=== PATIENT | male | born 1970 | race Two or more races ===

== ENCOUNTER 2025-06-30 17:59 | Inpatient (IN) ==
[2025-06-30] MEDS: OPTIRAY 320 100ml IV ONE (18:13)
--- NOTE | 2025-06-30 18:21 | Emergency Department Note ---
History of Present Illness General Chief complaint: Trauma Stated complaint: UNRESPONSIVE, SYNCOPE Time Seen by Provider: 06/30/25 18:03 Source: EMS Limitations: language barrier History of Present Illness Provider complaint: Syncope 54-year-old male from [facility] presents to the emergency department status post syncopal episode. Per EMS and guards at bedside the patient was having a visitation with a family member when he found out a family member . Patient became very distraught and then had a syncopal episode and fell down and hit his head. Patient is not giving any history just crying. Home Medications Medication Instructions Recorded Confirmed Type No Known Home Medications 06/30/25 06/30/25 History Allergies Allergy/AdvReac Type Severity Reaction Status Date / Time No Known Allergies Allergy Unverified 06/30/25 18:11 Past Med/Surg History Problem List (Updated 06/30/25 @ 19:25 by Brian Crawley MD) CHI (closed head injury) (Acute) Syncope (Acute) Rhabdomyolysis (Acute) Social History Smoking Status: Former smoker Preferred Language: Kuwaiti Feels Safe at Home: Yes Physical Exam Vital Signs Vital Signs - 24 hr 06/30/25 17:47 06/30/25 17:49 06/30/25 17:49 Temperature 36.4 C L 36.7 C 36.4 C L Temperature Source Oral Oral Pulse Rate 79 74 Pulse Rate [Right Finger] 73 Respiratory Rate 22 24 24 Respiratory Effort / Characteristics Non-Labored Spontaneous Non-Labored Spontaneous Respiratory Depth Normal Normal Blood Pressure 129/64 132/75 Blood Pressure [Right Arm] 132/75 Blood Pressure Mean 85 Blood Pressure Mean [Right Arm] 94 Pulse Oximetry 96 100 98 Oxygen Delivery Method Room Air Room Air Room Air Oxygen Flow Rate 0 Sepsis Recent Fever Within 48 Hours No Sepsis New/Unexplained Change in Mental Status No Sepsis Action Taken by Nursing No Action Required 06/30/25 18:33 06/30/25 18:41 06/30/25 18:49 Temperature Temperature Source Pulse Rate 75 Pulse Rate [Right Finger] 79 78 Respiratory Rate 21 23 Respiratory Effort / Characteristics Non-Labored Spontaneous Non-Labored Spontaneous Respiratory Depth Normal Normal Blood Pressure Blood Pressure [Right Arm] 127/70 128/69 Blood Pressure Mean Blood Pressure Mean [Right Arm] 89 88 Pulse Oximetry 100 97 Oxygen Delivery Method Room Air Room Air Oxygen Flow Rate Sepsis Recent Fever Within 48 Hours Sepsis New/Unexplained Change in Mental Status Sepsis Action Taken by Nursing 06/30/25 19:45 Temperature Temperature Source Pulse Rate Pulse Rate [Right Finger] 73 Respiratory Rate 20 Respiratory Effort / Characteristics Respiratory Depth Blood Pressure Blood Pressure [Right Arm] 136/73 Blood Pressure Mean Blood Pressure Mean [Right Arm] 94 Pulse Oximetry 99 Oxygen Delivery Method Room Air Oxygen Flow Rate Sepsis Recent Fever Within 48 Hours Sepsis New/Unexplained Change in Mental Status Sepsis Action Taken by Nursing Primary Survey Airway: Intact Breathing: Normal, breath sounds equal bilaterally Circulation: Skin warm, distal pulses 2+, capillary refill less than 2 seconds Disability Pupils: Equal and reactive to light, 2 mm, brisk GCS: 15, E = 4 V=2 M= 5 Motor Function: Moves all extremities. Sensory: No deficits Secondary Survey GEN: Well developed and well-nourished. Patient in shackles with [facility] guards at bedside. HEAD: Normocephallic atruamatic EYES: Pupils round reactive to light, conjunctiva clear, extraocular movements intact, no raccoons eyes ENT: no ngo's sign, nares patent, oropharynx clear NECK: No JVD, midline trachea, no cervical spine tenderness HEART: Regular rate and rhythm LUNGS: Clear to auscultation bilaterally. CHEST: Chest wall non-tender, no bruising/deformity ABD: soft, non-tender, no rebound or guarding, MUSC: Pelvis stable. No step offs or deformities, T-L spine non tender NEURO: Motor and sensation grossly intact. Course Course 1802: The patient was evaluated in room A1. A complete history and physical exam was performed Cardiac monitoring: An order was placed for continuous cardiac monitoring. The monitor shows a rate of 70 with sinus rhythm interpreted by me 1904: Imaging shows no acute traumatic injury. Patient C-spine cleared. 1922: Vital signs stable. Patient alert and oriented at this time. Speaking in [place]i now. Labs are significant for a total creatinine kinase of 3465. Patient will be aggressively hydrated and admitted to the hospitalist service for rhabdomyolysis as well as his syncope. Administered Medications Discontinued Medications Sodium Chloride (Nss) 1,000 mls @ 999 mls/hr IV .Q1H1M ONE Stop: 06/30/25 19:04 Last Infusion: 06/30/25 19:58 Dose: Infused Documented By: Admin: 06/30/25 18:52 Dose: 999 mls/hr Documented By: POLLY Sodium Chloride (Nss) 1,000 mls @ 999 mls/hr IV .Q1H1M ONE Stop: 06/30/25 20:15 Last Admin: 06/30/25 19:36 Dose: 999 mls/hr Documented By: JANE Ioversol (Optiray 320 100ml) 90 ml IV ONCE ONE Stop: 06/30/25 18:13 Last Admin: 06/30/25 18:13 Dose: 90 ml Documented By: CARLENE Miscellaneous (Rapid Sequence Induction Bag) Confirm Administered Dose 1 each N/A .STK-MED ONE Stop: 06/30/25 17:52 Last Admin: 06/30/25 18:51 Dose: Not Given Documented By: POLLY Critical Care Time Critical Care Time: Yes Total Critical Care Time: 52 I have personally spent greater than 52 minutes of critical care time in the direct management of this patient. This includes bedside care, interpretation of diagnostic studies, and testing, discussion with consultants, patient, and family members, and other required patient management activities. This 52 minutes is in excess of all separately billable procedures. Medical Decision Making Laboratory Data Attestation: I reviewed the patient's lab results. 06/30/25 18:06 06/30/25 18:06 Lab Results 06/30/25 06/30/25 06/30/25 Range/Units 18:06 18:10 18:24 WBC 6.88 (4.8-10.8) K/ul RBC 3.22 L (4.70-6.10) M/uL Hgb 11.4 L (14.0-18.0) g/dl POC Hgb 11.9 L (14.0-18.0) g/dl Hct 32.8 L (42.0-52.0) % POC Hct 35 L (42-52) % MCV 101.9 H (80.0-100.0) fL MCH 35.4 H (25.0-34.0) pg MCHC 34.8 (32.0-36.0) g/dL RDW Std Deviation 58.8 H (36.4-46.3) fL RDW Coeff of Steffanie 15.9 H (11.5-14.5) % Plt Count 149 (130-400) K/uL MPV 11.4 (9.4-12.4) fL Immature Gran % (Auto) 0.3 % Neut % (Auto) 57.3 % Lymph % (Auto) 28.5 % Duchesne % (Auto) 11.5 % Eos % (Auto) 1.5 % Baso % (Auto) 0.9 % Neut # (Auto) 3.95 (1.40-6.50) K/uL Lymph # (Auto) 1.96 (1.20-3.40) K/uL Duchesne # (Auto) 0.79 H (0.11-0.59) K/uL Eos # (Auto) 0.10 (0.00-0.50) K/uL Baso # (Auto) 0.06 (0.00-0.20) K/uL Immature Gran # (Auto) 0.02 (0.01-0.20) K/uL PT 10.4 (9.0-12.0) Seconds INR 1.0 (0.9-1.1) APTT 27 (21-31) Seconds PTT Ratio 1.0 POC Sodium 141 (135-144) mmol/L Sodium 141 (136-145) mmol/L POC Potassium 4.2 (3.3-5.0) mmol/L Potassium 4.2 (3.5-5.1) mmol/L POC Chloride 103 (101-112) mmol/L Chloride 104 (98-107) mmol/L Carbon Dioxide 31 (21-32) mmol/L POC Total CO2 28 (24-31) mmol/L Anion Gap 6 (3-11) POC Anion Gap 15.0 L (16-25) mmol/L POC BUN 8 (7-18) mg/dl BUN 9 (6-23) mg/dl Creatinine 0.78 (0.6-1.4) mg/dl POC Creatinine 0.9 (0.6-1.3) mg/dl Est Cr Clr Drug Dosing 118.1 ml/min eGFR 107.30 BUN/Creatinine Ratio 11.5 (10-20) Glucose 103 H (70-99(Fasting)) mg/dl POC Glucose (other) 103 H (70-99) mg/dl Calcium 8.9 (8.6-10.3) mg/dl POC Ioniz Calcium Deann 1.07 L (1.12-1.32) mmol/l Total Bilirubin 0.5 (0.2-1.0) mg/dl AST 101 H (13-39) U/L ALT 54 H (7-52) U/L Alkaline Phosphatase 181 H (34-104) U/L Total Creatine Kinase 3465 H (30-223) U/L Troponin I High Sens 12.0 (0-20) pg/ml Total Protein 7.1 (6.0-8.3) gm/dl Albumin 3.4 (3.4-5.0) gm/dl Globulin 3.7 (2.5-4.0) gm/dl Albumin/Globulin Ratio 0.9 (0.9-2) Lipase 54 (11-82) U/L Urine Color Yellow Urine Appearance Clear (Clear) Urine pH 7.5 (4.5-7.5) Ur Specific [place] 1.007 (1.000-1.030) Urine Protein Negative (Negative) Urine Glucose (UA) Negative (Negative) Urine Ketones Negative (Negative) Urine Blood Negative (Negative) Urine Nitrite Negative (Negative) Urine Bilirubin Negative (Negative) Urine Urobilinogen Negative (Negative) Ur Leukocyte Esterase Trace H (Negative) Urine WBC (Auto) 0-5 (0-5) /hpf Urine RBC (Auto) 0-2 (0-2) /hpf U Hyaline Cast (Auto) 0-2 (0-2) /lpf U Epithel Cells (Auto) 0-2 (0-2) /hpf Urine Bacteria (Auto) None Seen (None Seen) Urine Comment Urine Opiates Screen Neg (Neg) Ur Methadone, Qual Neg (Neg) Urine Fentanyl Screen Neg (Neg) Urine Barbiturates Neg (Neg) Ur Phencyclidine (PCP) Neg (Neg) U Amphetamin/Meth Scrn Neg (Neg) MDMA (Ecstasy) Screen Neg (Neg) U Benzodiazepines Scrn Neg (Neg) Ur Cocaine Metabolite Neg (Neg) U Marijuana (THC) Screen Neg (Neg) Imaging Data Attestation: I personally reviewed and interpreted this imaging study as follows: My Impression: Chest x-ray: Chest x-ray negative. Airway clear. No pneumothorax. No consolidation. No cardiomegaly or cephalization.. No free air under the diaphragm. No fractures of the skeletal structures. Pelvis x-ray: No acute fracture or dislocation Radiologist's Impression: Abdomen/Pelvis CT 06/30/25 18:03 Clinical History: Syncopal episode. Fall Technique: Axial computed tomography images were obtained of the abdomen and pelvis after the administration of intravenous contrast. No prior CT is available for comparison. Findings: The liver is enlarged. There is no sign of cirrhosis or significant fatty infiltration. There are suspected small cysts in the right hepatic lobe. No liver mass lesion is seen. The portal vein is patent. The gallbladder appears unremarkable. No bile duct dilatation is noted. The spleen is of normal size. No focal splenic lesion is evident. The pancreas appears normal with no sign of acute or chronic pancreatitis and no mass lesion noted. The pancreatic duct is of normal caliber. The adrenal glands appear unremarkable. There are small bilateral renal calculi, measuring 2-3 mm. There is no hydronephrosis or perinephric stranding. No renal mass lesion is identified. The aorta is of normal caliber. No abdominal adenopathy is seen. The stomach appears normal. There is no sign of small bowel obstruction. There is diverticulosis without evidence of diverticulosis. No free intraperitoneal fluid or air is identified. No distal ureteral or bladder calculi are seen. There is mild prominence of the bladder wall that could be due to incomplete distention. The iliac arteries are of normal caliber. No pelvic adenopathy is noted. There is a small calcified granuloma in the right lower lobe. There is a 4 mm noncalcified left lower lobe nodule Mild thoracolumbar degenerative disc disease is seen. No fracture is identified. No focal osseous lesion is seen Impression: 1. No definite sign of abdominal organ injury after trauma 2. Small hepatic cysts 3. Small nonobstructing renal calculi 4. Diverticulosis without evidence of diverticulitis 5. Mild prominence of the wall of the urinary bladder. This appearance could be due to incomplete distention, though infectious cystitis or other pathology cannot be excluded. Correlation with urinalysis may be useful 6. Small left lung base nodule, likely benign but indeterminate in nature. A follow-up chest CT could be obtained in 6 months 7. Hepatomegaly ACT 112: Positive. There are findings on this exam that require communication between the performing entity and the patient following Patient Test Result Information Act ([place] ACT 112) guidelines. Electronically signed by Venkat Perez 06-30-2025 6:53 PM Chest X-Ray 06/30/25 18:03 Clinical History: Trauma Technique: 2 frontal views of the chest were obtained Findings: There are no confluent pulmonary infiltrates. The heart size is at the upper limit of normal. No pleural effusion or pneumothorax is seen. There is no definite pulmonary nodule. No fracture is noted. No foreign body is seen Impression: No active disease Electronically signed by Venkat Perez 06-30-2025 6:44 PM Pelvis X-Ray 06/30/25 18:03 Clinical History: Trauma 1 view of the pelvis is submitted for review. Findings: No fracture or dislocation is seen. No significant arthritic changes are noted. No other osseous abnormality is identified. There are no radiopaque foreign bodies. Impression: Unremarkable pelvic radiograph Electronically signed by Venkat Perez 06-30-2025 6:[address] 06/30/25 18:04 Clinical history: Syncope. Fall Technique: Axial computed tomography images were obtained of the cervical spine without intravenous contrast. Sagittal and coronal reconstructions were obtained Findings: No fracture is identified. No listhesis is seen. No focal osseous lesion is evident. The atlantoaxial articulation appears unremarkable. At C2-3, no disc herniation is identified. There is no spinal stenosis. The neural foramen are patent At C3-4, no disc herniation is identified. There is no spinal stenosis. The neural foramen are patent At C4-5, there is a disc bulge without spinal stenosis. There is right neural foramen narrowing that may affect the right C5 nerve root At C5-6, there is spinal stenosis due to a disc bulge. There is right neural foramen narrowing that may affect the right C6 nerve root At C6-7, there is mild spinal stenosis due to a disc bulge. There is left neural foramen narrowing that may affect the right C7 nerve root At C7-T1,no disc herniation is identified. There is no spinal stenosis. The neural foramen are patent The lung apices appear clear. The visualized soft tissues of the neck appear unremarkable. No foreign body is seen Impression: 1. No definite cervical spine fracture 2. Spinal stenosis at C5-6 and C6-7 3. Right C4-5 and C5-6 and left C6-7 neural foramen narrowing, which may affect the exiting nerve roots Electronically signed by Venkat Perez 06-30-2025 6:[address] 06/30/25 18:04 Clinical History: Syncope. Fall Technique: Axial computed tomography images were obtained of the brain without intravenous contrast. Findings: There is mild cerebral atrophy, within expected limits for the patient's age. Areas of decreased attenuation are seen within the periventricular white matter, likely representing chronic small vessel ischemic disease. There is no definite sign of acute or old infarction. No intracranial hemorrhage is evident. No definite mass lesion is seen on this noncontrast examination. There is no midline shift or other form of herniation. No hydrocephalus is seen. No fracture is identified. The orbits and the visualized paranasal sinuses appear unremarkable. The mastoid air cells appear clear. Impression: 1. Cerebral atrophy and chronic small vessel ischemic disease 2. Otherwise unremarkable noncontrast CT of the brain Electronically signed by Venkat Perez 06-30-2025 6:43 PM ECG Data Attestation: I personally reviewed and interpreted this ECG as follows: Rate (beats per minute): 74 Rhythm: + normal sinus ECG Intervals/blocks: + Normal QRS, + Normal SD and + Normal QT-c ECG ST segments: + Normal ST segments [facility] Narrative 1803: The patient was evaluated in room A1. A complete history and physical exam was performed Cardiac monitoring: An order was placed for continuous cardiac monitoring. The monitor shows a rate of 70 with sinus rhythm interpreted by me 1904: Imaging shows no acute traumatic injury. Patient C-spine cleared. 1923: Vital signs stable. Patient alert and oriented at this time. Speaking in [place]i now. Labs are significant for a total creatinine kinase of 3465. Patient will be aggressively hydrated and admitted to the hospitalist service for rhabdomyolysis as well as his syncope. Impression & Plan Rhabdomyolysis, Syncope, CHI (closed head injury) Discharge Plan Visit Data Chief Complaint: Trauma Stated Complaint: UNRESPONSIVE, SYNCOPE ED Provider: Brian Crawley Discharge Problem: Rhabdomyolysis, Syncope, CHI (closed head injury) Patient Disposition: Admitted As Inpatient Condition: Serious Forms Stand Alone Forms: [employer] Prescriptions Prescriptions: No Action No Known Home Medications Referrals Referrals: PCP,NO [Physician] -
[2025-06-30 18:28] LABS: Hematocrit (blood only) 32.8 % (42.0-52.0); Hemoglobin 11.4 g/dl (14.0-18.0); Immature Granulocytes # (auto) 0.02 K/uL (0.01-0.20); Immature Granulocytes % (auto) 0.3 %; Mean Corpuscular Hemoglobin 35.4 pg (25.0-34.0); Mean Corpuscular Volume 101.9 fL (80.0-100.0); Platelet Count 149 K/uL (130-400); RDW Standard Deviation 58.8 fL (36.4-46.3); Red Blood Count 3.22 M/uL (4.70-6.10); White Blood Count 6.88 K/ul (4.8-10.8)
--- NOTE | 2025-06-30 18:43 | CT Scan Report ---
Clinical History: Syncope. Fall Technique: Axial computed tomography images were obtained of the brain without intravenous contrast. Findings: There is mild cerebral atrophy, within expected limits for the patient's age. Areas of decreased attenuation are seen within the periventricular white matter, likely representing chronic small vessel ischemic disease. There is no definite sign of acute or old infarction. No intracranial hemorrhage is evident. No definite mass lesion is seen on this noncontrast examination. There is no midline shift or other form of herniation. No hydrocephalus is seen. No fracture is identified. The orbits and the visualized paranasal sinuses appear unremarkable. The mastoid air cells appear clear. Impression: 1. Cerebral atrophy and chronic small vessel ischemic disease 2. Otherwise unremarkable noncontrast CT of the brain Electronically signed by Venkat Perez 06-30-2025 6:43 PM
[2025-06-30 18:45] LABS: Appearance Urine Clear (Clear); Bacteria Urine Automated None Seen (None Seen); Cast Urine Automated 0-2 /lpf (0-2); Epithelial Cell Urine Auto 0-2 /hpf (0-2); Glucose Urine UA Negative (Negative); RBC Urine Automated 0-2 /hpf (0-2); WBC Urine Automated 0-5 /hpf (0-5)
--- NOTE | 2025-06-30 18:45 | XRay Report ---
Clinical History: Trauma Technique: 2 frontal views of the chest were obtained Findings: There are no confluent pulmonary infiltrates. The heart size is at the upper limit of normal. No pleural effusion or pneumothorax is seen. There is no definite pulmonary nodule. No fracture is noted. No foreign body is seen Impression: No active disease Electronically signed by Venkat Perez 06-30-2025 6:44 PM
--- NOTE | 2025-06-30 18:45 | XRay Report ---
Clinical History: Trauma 1 view of the pelvis is submitted for review. Findings: No fracture or dislocation is seen. No significant arthritic changes are noted. No other osseous abnormality is identified. There are no radiopaque foreign bodies. Impression: Unremarkable pelvic radiograph Electronically signed by Venkat Perez 06-30-2025 6:44 PM
[2025-06-30 18:46] LABS: Anion Gap 6.0 (3-11); Blood Urea Nitrogen 9.0 mg/dl (6-23); Calcium 8.9 mg/dl (8.6-10.3); Carbon Dioxide 31.0 mmol/L (21-32); Chloride 104.0 mmol/L (98-107); Creatinine Clr Calc Pharmacy 118.1 ml/min; Glucose 103.0 mg/dl (70-99(Fasting)); Potassium 4.2 mmol/L (3.5-5.1); Sodium 141.0 mmol/L (136-145)
--- NOTE | 2025-06-30 18:49 | CT Scan Report ---
Clinical history: Syncope. Fall Technique: Axial computed tomography images were obtained of the cervical spine without intravenous contrast. Sagittal and coronal reconstructions were obtained Findings: No fracture is identified. No listhesis is seen. No focal osseous lesion is evident. The atlantoaxial articulation appears unremarkable. At C2-3, no disc herniation is identified. There is no spinal stenosis. The neural foramen are patent At C3-4, no disc herniation is identified. There is no spinal stenosis. The neural foramen are patent At C4-5, there is a disc bulge without spinal stenosis. There is right neural foramen narrowing that may affect the right C5 nerve root At C5-6, there is spinal stenosis due to a disc bulge. There is right neural foramen narrowing that may affect the right C6 nerve root At C6-7, there is mild spinal stenosis due to a disc bulge. There is left neural foramen narrowing that may affect the right C7 nerve root At C7-T1,no disc herniation is identified. There is no spinal stenosis. The neural foramen are patent The lung apices appear clear. The visualized soft tissues of the neck appear unremarkable. No foreign body is seen Impression: 1. No definite cervical spine fracture 2. Spinal stenosis at C5-6 and C6-7 3. Right C4-5 and C5-6 and left C6-7 neural foramen narrowing, which may affect the exiting nerve roots Electronically signed by Venkat Perez 06-30-2025 6:48 PM
[2025-06-30] MEDS: RAPID SEQUENCE INDUCTION BAG ONE (18:51)
[2025-06-30] MEDS: SODIUM CHLORIDE 0.9% 1,000 ML IV ONE ×2 (18:52→19:36)
--- NOTE | 2025-06-30 18:54 | CT Scan Report ---
Clinical History: Syncopal episode. Fall Technique: Axial computed tomography images were obtained of the abdomen and pelvis after the administration of intravenous contrast. No prior CT is available for comparison. Findings: The liver is enlarged. There is no sign of cirrhosis or significant fatty infiltration. There are suspected small cysts in the right hepatic lobe. No liver mass lesion is seen. The portal vein is patent. The gallbladder appears unremarkable. No bile duct dilatation is noted. The spleen is of normal size. No focal splenic lesion is evident. The pancreas appears normal with no sign of acute or chronic pancreatitis and no mass lesion noted. The pancreatic duct is of normal caliber. The adrenal glands appear unremarkable. There are small bilateral renal calculi, measuring 2-3 mm. There is no hydronephrosis or perinephric stranding. No renal mass lesion is identified. The aorta is of normal caliber. No abdominal adenopathy is seen. The stomach appears normal. There is no sign of small bowel obstruction. There is diverticulosis without evidence of diverticulosis. No free intraperitoneal fluid or air is identified. No distal ureteral or bladder calculi are seen. There is mild prominence of the bladder wall that could be due to incomplete distention. The iliac arteries are of normal caliber. No pelvic adenopathy is noted. There is a small calcified granuloma in the right lower lobe. There is a 4 mm noncalcified left lower lobe nodule Mild thoracolumbar degenerative disc disease is seen. No fracture is identified. No focal osseous lesion is seen Impression: 1. No definite sign of abdominal organ injury after trauma 2. Small hepatic cysts 3. Small nonobstructing renal calculi 4. Diverticulosis without evidence of diverticulitis 5. Mild prominence of the wall of the urinary bladder. This appearance could be due to incomplete distention, though infectious cystitis or other pathology cannot be excluded. Correlation with urinalysis may be useful 6. Small left lung base nodule, likely benign but indeterminate in nature. A follow-up chest CT could be obtained in 6 months 7. Hepatomegaly ACT 112: Positive. There are findings on this exam that require communication between the performing entity and the patient following Patient Test Result Information Act ([place] ACT 112) guidelines. Electronically signed by Venkat Perez 06-30-2025 6:53 PM
[2025-06-30 18:55] LABS: INR 1.0 (0.9-1.1); Partial Thromboplastin Time 27 Seconds (21-31); Prothrombin Time 10.4 Seconds (9.0-12.0)
[2025-06-30 19:12] LABS: Alanine Aminotransferase 54.0 U/L (7-52); Albumin Globulin Ratio 0.9 (0.9-2); Alkaline Phosphatase 181.0 U/L (34-104); Bilirubin,Total 0.5 mg/dl (0.2-1.0); Creatine Kinase 3465.0 U/L (30-223); Globulin 3.7 gm/dl (2.5-4.0); Lipase 54.0 U/L (11-82); Total Protein 7.1 gm/dl (6.0-8.3)
[2025-06-30 19:30] LABS: Amphetamines+Metham, Urine Neg (Neg); MDMA (Ecstacy), Urine Neg (Neg); Marijuana, Urine Neg (Neg)
--- NOTE | 2025-06-30 22:36 | History & Physical Report ---
Date of Service June 30, 2025 Assessment & Plan (1) Syncope: Plan: 54-year-old male with past medical history significant for COVID in 2020 and was in coma and was 25 days in the hospital as per the patient who is currently in retirement presents with syncope. Patient had a visit from family and was notified that his mother yesterday. Since the news seems patient became very distraught and had a syncopal episode and fell down and hit his head. Patient does not know how long he passed out. After he woke up he was confused for some time. Denies any biting of the tongue. Patient does not know whether he had a bowel or bladder incontinence during the episode. Initially in the ER he was crying. Currently is feeling better. Has some headache.Some blurred visions. No sore throat or cough. Initially had chest pain but is getting better now. Earlier had shortness of breath but is getting better now. Having cough since morning and bringing sputum. Had some nausea. Has some lower abdominal discomfort. Had normal bowel movements in the morning. Micturating okay. Hemodynamics are okay. Patient has rash in his lower extremities he attributes it to complication from his severe COVID . Pointer Machine Operator gave him some cream which he has at home. 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 Couple of days ago his legs were very much swollen. Currently the swelling has come down.His PPD shot on left forearm seems positive Patient thinks he ad reaction from PPD shot and possibly caused leg swelling. Syncope and fall Questionable seizures Hit his head CT head no acute findings CT cervical spine no acute findings Chest x-ray no acute findings Pelvic x-ray no acute findings CT abdomen pelvis no acute findings. Diverticulosis. Hepatomegaly. Small left lung base nodule recommend follow-up CT chest in 6 months EKG and troponin okay. Will monitor on telemetry Serial cardiac enzymes and repeat EKG and an echocardiogram EEG Consult cardiology and neurology in a.m. Rhabdomyolysis CPK 3465 Aggressive fluids Follow repeat labs Elevated LFTs Total bilirubin 0.5. AST 101. ALT 54. Alkaline phos 181. Will follow repeat levels Will follow hepatitis panel PPD scee Positive? cxr ok ct chest shows two solid nodules 4mm and 5mm in left lower lobe , othrwise unremarkable has cough. sputum sent for cultures and acid fast smear consulted pulmonary for any further recommendation/advice Anemia Hemoglobin 11.4 MCV 101 Will check stool for Hemoccult Iron studies, vitamin B12 folate levels Will follow labs DVT prophylaxis Lovenox Disposition Telemetry Full code. History of Present Illness Chief Complaint: Syncope Primary Care Provider: Bossman Ochoa DO 54-year-old male with past medical history significant for COVID in 2020 and was in coma and was 25 days in the hospital as per the patient who is currently in retirement presents with syncope. Patient had a visit from family and was notified that his mother yesterday. Since the news seems patient became very distraught and had a syncopal episode and fell down and hit his head. Patient does not know how long he passed out. After he woke up he was confused for some time. Denies any biting of the tongue. Patient does not know whether he had a bowel or bladder incontinence during the episode. Initially in the ER he was crying. Currently is feeling better. Has some headache.Some blurred visions. No sore throat or cough. Initially had chest pain but is getting better now. Earlier had shortness of breath but is getting better now. Having cough since morning and bringing sputum. Had some nausea. Has some lower abdominal discomfort. Had normal bowel movements in the morning. Micturating okay. Hemodynamics are okay. Patient has rash in his lower extremities he attributes it to complication from his severe COVID . Pointer Machine Operator gave him some cream which he has at home. 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 Couple of days ago his legs were very much swollen. Currently the swelling has come down.His PPD shot on left forearm seems positive Patient thinks he ad reaction from PPD shot and possibly caused leg swelling. Past medical history. As mentioned above. Past surgical history. Left inguinal hernia repair. Liver biopsy. Social history. Patient states he used to smoke for here and there small amounts. Currently not drinking alcohol. Denies any drug use. Family history. Mother from heart attack. Allergies Allergy/AdvReac Type Severity Reaction Status Date / Time No Known Allergies Allergy Unverified 06/30/25 18:11 Home Medications Medication Instructions Recorded Confirmed Type No Known Home Medications 06/30/25 06/30/25 History Past Med/Surg History Problem List (Updated 06/30/25 @ 19:25 by Brian Crawley MD) CHI (closed head injury) (Acute) Syncope (Acute) Rhabdomyolysis (Acute) Social History Smoking Status: Former smoker Hx Alcohol Use: No Hx Substance Use: No Preferred Language: Luxembourgish Communication Ability: Effective Beliefs That Will Affect Care: None Feels Safe at Home: Yes Review of Systems Review of Systems: All systems reviewed & are unremarkable except as noted in HPI & below Physical Exam Physical Exam: General- Not in distress. Head- atraumatic Eyes- PERRL. ENT- oropharynx clear Neck- supple, no JVD. Lungs- clear to auscultation no wheezing or crackles Heart- regular rate and rhythm; no murmur, no gallop. Abdomen- normal bowel sounds, soft, nontender, no distension Extremities- trace pretibial edema, scaly erythematous rash seen on lower extremity. Neuro- alert, oriented PERRL, no facial palsy; no dysarthria; moves extremities Results & Data Results & Data Vital Signs (Past 12 Hours) Vital Signs Temp Pulse Pulse Resp BP BP Pulse Ox 06/30/25 22:00 71 18 139/78 99 06/30/25 21:00 77 20 131/77 98 06/30/25 20:00 72 20 147/85 H 100 06/30/25 19:45 73 20 136/73 99 06/30/25 18:49 78 23 128/69 97 06/30/25 18:41 79 21 127/70 100 06/30/25 18:33 75 06/30/25 17:49 36.4 C L 73 24 132/75 98 06/30/25 17:49 36.7 C 74 24 132/75 100 06/30/25 17:47 36.4 C L 79 22 129/64 96 O2 Del Method O2 Flow Rate 06/30/25 22:00 Room Air 06/30/25 21:00 Room Air 06/30/25 20:00 Room Air 06/30/25 19:45 Room Air 06/30/25 18:49 Room Air 06/30/25 18:41 Room Air 06/30/25 18:33 06/30/25 17:49 Room Air 06/30/25 17:49 Room Air 0 06/30/25 17:47 Room Air Diagnostic Findings Laboratory Results WBC 6.88 K/ul (4.8-10.8) 06/30/25 18:06 RBC 3.22 M/uL (4.70-6.10) L 06/30/25 18:06 Hgb 11.4 g/dl (14.0-18.0) L 06/30/25 18:06 POC Hgb 11.9 g/dl (14.0-18.0) L 06/30/25 18:10 Hct 32.8 % (42.0-52.0) L 06/30/25 18:06 POC Hct 35 % (42-52) L 06/30/25 18:10 MCV 101.9 fL (80.0-100.0) H 06/30/25 18:06 MCH 35.4 pg (25.0-34.0) H 06/30/25 18:06 MCHC 34.8 g/dL (32.0-36.0) 06/30/25 18:06 RDW Std Deviation 58.8 fL (36.4-46.3) H 06/30/25 18:06 RDW Coeff of Steffanie 15.9 % (11.5-14.5) H 06/30/25 18:06 Plt Count 149 K/uL (130-400) 06/30/25 18:06 MPV 11.4 fL (9.4-12.4) 06/30/25 18:06 Immature Gran % (Auto) 0.3 % 06/30/25 18:06 Neut % (Auto) 57.3 % 06/30/25 18:06 Lymph % (Auto) 28.5 % 06/30/25 18:06 [place] % (Auto) 11.5 % 06/30/25 18:06 Eos % (Auto) 1.5 % 06/30/25 18:06 Baso % (Auto) 0.9 % 06/30/25 18:06 Neut # (Auto) 3.95 K/uL (1.40-6.50) 06/30/25 18:06 Lymph # (Auto) 1.96 K/uL (1.20-3.40) 06/30/25 18:06 [place] # (Auto) 0.79 K/uL (0.11-0.59) H 06/30/25 18:06 Eos # (Auto) 0.10 K/uL (0.00-0.50) 06/30/25 18:06 Baso # (Auto) 0.06 K/uL (0.00-0.20) 06/30/25 18:06 Immature Gran # (Auto) 0.02 K/uL (0.01-0.20) 06/30/25 18:06 PT 10.4 Seconds (9.0-12.0) 06/30/25 18:06 INR 1.0 (0.9-1.1) 06/30/25 18:06 APTT 27 Seconds (21-31) 06/30/25 18:06 PTT Ratio 1.0 06/30/25 18:06 POC Sodium 141 mmol/L (135-144) 06/30/25 18:10 Sodium 141 mmol/L (136-145) 06/30/25 18:06 POC Potassium 4.2 mmol/L (3.3-5.0) 06/30/25 18:10 Potassium 4.2 mmol/L (3.5-5.1) 06/30/25 18:06 POC Chloride 103 mmol/L (101-112) 06/30/25 18:10 Chloride 104 mmol/L (98-107) 06/30/25 18:06 Carbon Dioxide 31 mmol/L (21-32) 06/30/25 18:06 POC Total CO2 28 mmol/L (24-31) 06/30/25 18:10 Anion Gap 6 (3-11) 06/30/25 18:06 POC Anion Gap 15.0 mmol/L (16-25) L 06/30/25 18:10 POC BUN 8 mg/dl (7-18) 06/30/25 18:10 BUN 9 mg/dl (6-23) 06/30/25 18:06 Creatinine 0.78 mg/dl (0.6-1.4) 06/30/25 18:06 POC Creatinine 0.9 mg/dl (0.6-1.3) 06/30/25 18:10 Est Cr Clr Drug Dosing 118.1 ml/min 06/30/25 18:06 eGFR 107.30 06/30/25 18:06 BUN/Creatinine Ratio 11.5 (10-20) 06/30/25 18:06 Glucose 103 mg/dl (70-99(Fasting)) H 06/30/25 18:06 POC Glucose (other) 103 mg/dl (70-99) H 06/30/25 18:10 Calcium 8.9 mg/dl (8.6-10.3) 06/30/25 18:06 POC Ioniz Calcium Deann 1.07 mmol/l (1.12-1.32) L 06/30/25 18:10 Total Bilirubin 0.5 mg/dl (0.2-1.0) 06/30/25 18:06 AST 101 U/L (13-39) H 06/30/25 18:06 ALT 54 U/L (7-52) H 06/30/25 18:06 Alkaline Phosphatase 181 U/L (34-104) H 06/30/25 18:06 Total Creatine Kinase 3465 U/L (30-223) H 06/30/25 18:06 Troponin I High Sens 12.0 pg/ml (0-20) 06/30/25 18:06 Total Protein 7.1 gm/dl (6.0-8.3) 06/30/25 18:06 Albumin 3.4 gm/dl (3.4-5.0) 06/30/25 18:06 Globulin 3.7 gm/dl (2.5-4.0) 06/30/25 18:06 Albumin/Globulin Ratio 0.9 (0.9-2) 06/30/25 18:06 Lipase 54 U/L (11-82) 06/30/25 18:06 Urine Color Yellow 06/30/25 18:24 Urine Appearance Clear (Clear) 06/30/25 18:24 Urine pH 7.5 (4.5-7.5) 06/30/25 18:24 Ur Specific [place] 1.007 (1.000-1.030) 06/30/25 18:24 Urine Protein Negative (Negative) 06/30/25 18:24 Urine Glucose (UA) Negative (Negative) 06/30/25 18:24 Urine Ketones Negative (Negative) 06/30/25 18:24 Urine Blood Negative (Negative) 06/30/25 18:24 Urine Nitrite Negative (Negative) 06/30/25 18:24 Urine Bilirubin Negative (Negative) 06/30/25 18:24 Urine Urobilinogen Negative (Negative) 06/30/25 18:24 Ur Leukocyte Esterase Trace (Negative) H 06/30/25 18:24 Urine WBC (Auto) 0-5 /hpf (0-5) 06/30/25 18:24 Urine RBC (Auto) 0-2 /hpf (0-2) 06/30/25 18:24 U Hyaline Cast (Auto) 0-2 /lpf (0-2) 06/30/25 18:24 U Epithel Cells (Auto) 0-2 /hpf (0-2) 06/30/25 18:24 Urine Bacteria (Auto) None Seen (None Seen) 06/30/25 18:24 Urine Comment 06/30/25 18:24 Urine Opiates Screen Neg (Neg) 06/30/25 18:24 Ur Methadone, Qual Neg (Neg) 06/30/25 18:24 Urine Fentanyl Screen Neg (Neg) 06/30/25 18:24 Urine Barbiturates Neg (Neg) 06/30/25 18:24 Ur Phencyclidine (PCP) Neg (Neg) 06/30/25 18:24 U Amphetamin/Meth Scrn Neg (Neg) 06/30/25 18:24 MDMA (Ecstasy) Screen Neg (Neg) 06/30/25 18:24 U Benzodiazepines Scrn Neg (Neg) 06/30/25 18:24 Ur Cocaine Metabolite Neg (Neg) 06/30/25 18:24 U Marijuana (THC) Screen Neg (Neg) 06/30/25 18:24 Impressions Abdomen/Pelvis CT 06/30/25 18:03 Clinical History: Syncopal episode. Fall Technique: Axial computed tomography images were obtained of the abdomen and pelvis after the administration of intravenous contrast. No prior CT is available for comparison. Findings: The liver is enlarged. There is no sign of cirrhosis or significant fatty infiltration. There are suspected small cysts in the right hepatic lobe. No liver mass lesion is seen. The portal vein is patent. The gallbladder appears unremarkable. No bile duct dilatation is noted. The spleen is of normal size. No focal splenic lesion is evident. The pancreas appears normal with no sign of acute or chronic pancreatitis and no mass lesion noted. The pancreatic duct is of normal caliber. The adrenal glands appear unremarkable. There are small bilateral renal calculi, measuring 2-3 mm. There is no hydronephrosis or perinephric stranding. No renal mass lesion is identified. The aorta is of normal caliber. No abdominal adenopathy is seen. The stomach appears normal. There is no sign of small bowel obstruction. There is diverticulosis without evidence of diverticulosis. No free intraperitoneal fluid or air is identified. No distal ureteral or bladder calculi are seen. There is mild prominence of the bladder wall that could be due to incomplete distention. The iliac arteries are of normal caliber. No pelvic adenopathy is noted. There is a small calcified granuloma in the right lower lobe. There is a 4 mm noncalcified left lower lobe nodule Mild thoracolumbar degenerative disc disease is seen. No fracture is identified. No focal osseous lesion is seen Impression: 1. No definite sign of abdominal organ injury after trauma 2. Small hepatic cysts 3. Small nonobstructing renal calculi 4. Diverticulosis without evidence of diverticulitis 5. Mild prominence of the wall of the urinary bladder. This appearance could be due to incomplete distention, though infectious cystitis or other pathology cannot be excluded. Correlation with urinalysis may be useful 6. Small left lung base nodule, likely benign but indeterminate in nature. A follow-up chest CT could be obtained in 6 months 7. Hepatomegaly ACT 112: Positive. There are findings on this exam that require communication between the performing entity and the patient following Patient Test Result Information Act ([place] ACT 112) guidelines. Electronically signed by Venkat Perez 06-30-2025 6:53 PM Chest X-Ray 06/30/25 18:03 Clinical History: Trauma Technique: 2 frontal views of the chest were obtained Findings: There are no confluent pulmonary infiltrates. The heart size is at the upper limit of normal. No pleural effusion or pneumothorax is seen. There is no definite pulmonary nodule. No fracture is noted. No foreign body is seen Impression: No active disease Electronically signed by Venkat Perez 06-30-2025 6:44 PM Pelvis X-Ray 06/30/25 18:03 Clinical History: Trauma 1 view of the pelvis is submitted for review. Findings: No fracture or dislocation is seen. No significant arthritic changes are noted. No other osseous abnormality is identified. There are no radiopaque foreign bodies. Impression: Unremarkable pelvic radiograph Electronically signed by Venkat Perez 06-30-2025 6:[address] 06/30/25 18:04 Clinical history: Syncope. Fall Technique: Axial computed tomography images were obtained of the cervical spine without intravenous contrast. Sagittal and coronal reconstructions were obtained Findings: No fracture is identified. No listhesis is seen. No focal osseous lesion is evident. The atlantoaxial articulation appears unremarkable. At C2-3, no disc herniation is identified. There is no spinal stenosis. The neural foramen are patent At C3-4, no disc herniation is identified. There is no spinal stenosis. The neural foramen are patent At C4-5, there is a disc bulge without spinal stenosis. There is right neural foramen narrowing that may affect the right C5 nerve root At C5-6, there is spinal stenosis due to a disc bulge. There is right neural foramen narrowing that may affect the right C6 nerve root At C6-7, there is mild spinal stenosis due to a disc bulge. There is left neural foramen narrowing that may affect the right C7 nerve root At C7-T1,no disc herniation is identified. There is no spinal stenosis. The neural foramen are patent The lung apices appear clear. The visualized soft tissues of the neck appear unremarkable. No foreign body is seen Impression: 1. No definite cervical spine fracture 2. Spinal stenosis at C5-6 and C6-7 3. Right C4-5 and C5-6 and left C6-7 neural foramen narrowing, which may affect the exiting nerve roots Electronically signed by Venkat Perez 06-30-2025 6:[address] 06/30/25 18:04 Clinical History: Syncope. Fall Technique: Axial computed tomography images were obtained of the brain without intravenous contrast. Findings: There is mild cerebral atrophy, within expected limits for the patient's age. Areas of decreased attenuation are seen within the periventricular white matter, likely representing chronic small vessel ischemic disease. There is no definite sign of acute or old infarction. No intracranial hemorrhage is evident. No definite mass lesion is seen on this noncontrast examination. There is no midline shift or other form of herniation. No hydrocephalus is seen. No fracture is identified. The orbits and the visualized paranasal sinuses appear unremarkable. The mastoid air cells appear clear. Impression: 1. Cerebral atrophy and chronic small vessel ischemic disease 2. Otherwise unremarkable noncontrast CT of the brain Electronically signed by Venkat Perez 06-30-2025 6:43 PM ECG Additional Comments: ECG. Normal sinus rhythm rate of 74. QTc 432. Code Status & VTE Plan VTE Prophylaxis Plan VTE Prophylaxis will be ordered: Yes
[2025-07-01] MEDS ORDERED: NITROGLYCERIN SL 0.4 MG/TAB TAB SL PRN (00:37)
--- NOTE | 2025-07-01 01:18 | CT Scan Report ---
EXAM: CT chest diagnostic wo con CLINICAL HISTORY: lung nodule ppd positive TECHNIQUE: Contiguous axial images were obtained from the neck base through the upper abdomen without contrast. In addition, sagittal and coronal reconstructions were performed to potentially increase the sensitivity for the detection of disease. CT scan was performed according to ALARA (as low as reasonable achievable). COMPARISON: None. FINDINGS: Two well defined nodule measuring about 4 mm and 5 mm is noted involving posterior and lateral basal segment of left lower lobe. Rest of lungs are clear. The central airways are patent. There are no pleural effusions. No pneumothorax is seen. Evaluation of the mediastinum and aleksandar is limited due to the lack of intravenous contrast. No axillary or mediastinal adenopathy is identified. The thyroid is unremarkable. The heart, aorta, and pulmonary arteries are of normal size and configuration. There are no appreciable coronary artery and aortic atherosclerotic calcifications. No pericardial effusion is identified. Imaged portions of the upper abdomen are unremarkable. No aggressive appearing osseous lesions are identified. IMPRESSION: 1. Two well defined solid nodules measuring about 4 mm and 5 mm is noted involving posterior and lateral basal segment of left lower lobe. Suggested follow up according to Fleischner society guidelines. Electronically signed by Moustapha Vanessa 07-01-2025 01:17 AM
[2025-07-01] MEDS: SODIUM CHLORIDE 0.9% 1,000 ML IV SCH (02:09)
[2025-07-01] MEDS: ACETAMINOPHEN 325 MG TAB PO PRN (04:23)
[2025-07-01 05:48] LABS: Hematocrit (blood only) 30.2 % (42.0-52.0); Hemoglobin 10.4 g/dl (14.0-18.0); Immature Granulocytes # (auto) 0.02 K/uL (0.01-0.20); Immature Granulocytes % (auto) 0.3 %; Mean Corpuscular Hemoglobin 35.1 pg (25.0-34.0); Mean Corpuscular Volume 102.0 fL (80.0-100.0); Platelet Count 132 K/uL (130-400); RDW Standard Deviation 60.1 fL (36.4-46.3); Red Blood Count 2.96 M/uL (4.70-6.10); White Blood Count 5.74 K/ul (4.8-10.8)
[2025-07-01 06:04] LABS: Anion Gap 6.0 (3-11); Blood Urea Nitrogen 8.0 mg/dl (6-23); Calcium 8.1 mg/dl (8.6-10.3); Carbon Dioxide 29.0 mmol/L (21-32); Chloride 106.0 mmol/L (98-107); Creatinine Clr Calc Pharmacy 141.8 ml/min; Glucose 89.0 mg/dl (70-99(Fasting)); Potassium 3.7 mmol/L (3.5-5.1); Sodium 141.0 mmol/L (136-145)
[2025-07-01 06:21] LABS: Alanine Aminotransferase 42.0 U/L (7-52); Alkaline Phosphatase 129.0 U/L (34-104); Bilirubin,Total 0.4 mg/dl (0.2-1.0); Creatine Kinase 3046.0 U/L (30-223); Iron 47.0 mcg/dl (35-175); Magnesium 1.8 mg/dl (1.7-2.4); Total Iron Binding Cap Calc 388.0 mcg/dl (250-450); Total Protein 5.8 gm/dl (6.0-8.3); Transferrin 277.0 mg/dl (200-360); Transferrin (FE) Percent Satur 12.0 % (20-50)
[2025-07-01 06:55] LABS: Hep B Surface Ag with confirm Negative (Negative)
--- NOTE | 2025-07-01 08:12 | Pulmonary Consultation ---
Date of Consultation July 01, 2025 Assessment & Plan (1) Pulmonary nodule: (2) PPD positive: (3) Latent tuberculosis: Plan CT chest 06/30/2025 personally reviewed: Bilateral apical pleural scarring Mild patchy groundglass opacity in the right upper lobe Pulmonary nodule left lower lobe on the periphery Minimal pleural thickening in the left lower lobe posterior aspect Calcified mediastinal and hilar no significant mediastinal lymphadenopathy -- PPD positive No fever or chills No night sweats, no unintentional weight loss CT chest does not show any signs of active infection -- Multiple pulmonary nodules Up to 5 mm left lower lobe Remote history of socially smoking Recommend repeating a CAT scan in 1 year Plan: Would classify the patient as latent TB Recommend outpatient follow-up with TB clinic Case discussed with primary team as well as RN No further recommendation from pulmonary perspective, will sign off Please call directly with any questions Please note the above document was generated using voice recognition software. It may contain grammatical, syntax or spelling errors.Any formal questions or concerns about the content, text or information contained within the body of this dictation should be directly addressed to the provider for clarification. History of Present Illness Attending Physician: Carmine Hidalgo MD History of Present Illness 54-year-old male was admitted to the hospital for syncopal episode Past medical history: Normocytic anemia Pulmonary consulted for PPD being positive Guards were in the room at the time of examination Patient says that he is feeling well when it comes to his breathing [place] has been in [place] years. Denies any coughing. Not bringing up any phlegm No chest pain. No nausea or vomiting, no diarrhea. No unusual headache or blurry vision No night sweats, no unintentional weight loss No known exposure to someone with TB Has never been incarcerated. Social history: Used to smoke 1 or 2 cigarettes here and there socially, no alcohol. Denies any illicit drug use. 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 Allergies Allergy/AdvReac Type Severity Reaction Status Date / Time No Known Allergies Allergy Unverified 06/30/25 18:11 Home Medications Medication Instructions Recorded Confirmed Type No Known Home Medications 06/30/25 06/30/25 History Patient History Social History Smoking Status: Former smoker Hx Alcohol Use: No Hx Substance Use: No Preferred Language: Tuval[place] Communication Ability: Effective Beliefs That Will Affect Care: None Feels Safe at Home: Yes Review of Systems 2 Review of Systems: All systems reviewed & are unremarkable except as noted in HPI & below Physical Exam 2 Physical Exam: Constitutional: No acute distress HEENT: EOMI, PERRLA Respiratory system: Good air entry bilaterally, no wheeze, no rhonchi, no crackles CVS: S1-S2 positive, no murmurs or gallops Abdomen: Soft, nontender, nondistended, positive bowel sounds x4 Extremities: +2 pulses bilaterally radialis/ dorsalis pedis, no cyanosis, no edema Neuro: Awake alert oriented x3 Psych: Normal mood and affect G/U: No [place] Skin: no rashes, warm and dry Lymphatic: no cervical or axillary lymphadenopathy Results & Data Results & Data Vital Signs (Past 12 Hours) Vital Signs Pulse Pulse Resp BP Pulse Ox O2 Del Method 07/01/25 07:03 59 L 07/01/25 05:25 64 20 129/77 Room Air 07/01/25 03:31 60 18 107/58 L 95 Room Air 07/01/25 01:17 62 22 163/80 H 96 Room Air 07/01/25 00:00 71 18 146/76 H 100 Room Air 06/30/25 23:00 70 20 129/75 98 Room Air 06/30/25 22:32 74 06/30/25 22:00 71 18 139/78 99 Room Air 06/30/25 21:00 77 20 131/77 98 Room Air Laboratory Results 07/01/25 05:28 07/01/25 05:28 PG Care Time/CCT Total # of Minutes Spent Total Time Spent with Patient: Total time spent is greater than 50% in coordination of care (as documented) at patient's floor/unit and/or counseling patient: Coding Level of Care Code 25197 INT INP/OBS CARE 2/55MIN Diagnoses Pulmonary nodule R91.1 PPD positive R76.11 Latent tuberculosis Z22.7
[2025-07-01] MEDS: ENOXAPARIN INJ 40 MG/0.4 ML SYR SQ SCH (09:15)
[2025-07-01 09:46] LABS: Hep C Ab Rflx HepCQuant RNA Negative (Negative)
[2025-07-01] MEDS ORDERED: ACETAMINOPHEN 500 MG TAB PO PRN (09:59)
[2025-07-01] MEDS ORDERED: HYDROmorphone INJ 0.5 MG/0.5 ML SYR IV PRN (10:22)
--- NOTE | 2025-07-01 10:24 | Cardiology Consultation ---
Date of Consultation July 01, 2025 Assessment & Plan (1) Syncope: * Troponin negative x 2. EKG within normal limits.Telemetry reveals normal sinus rhythm thus far without arrhythmia. * Symptoms suggest loss of postural tone in the getting of acute emotional state / grief. * Would recommend echocardiogram for completeness, once the need for airborne isolation clarified (2) Rhabdomyolysis: * agree with IV fluids (3) abnormal TB skin test, non smoker, incidental pulmonary nodules * Uncertain if patient has had past TB exposure or BCG vaccine * Additional work up in progress Case discussed with Dr Hidalgo of the hospitalist service by phone for the purpose of coordination of care. Rosalie Denton DO History of Present Illness Attending Physician: Carmine Hidalgo MD History of Present Illness Mr Gibbons is a 54 year old male seen in cardiology consultation per the request of Dr Del Angel for the evaluation of syncope. Patient seen in the ED , room C3 , on airborne isolation. He denies a history of heart disease or pulmonary disease. He has a primary physician whom he says he has been seeing every 6 months with not issues. He has been detained at the local [facility] facility for the last five days. While there , he had a TB skin test on his left forearm for screening purposes which was reportedly without reaction for the first three days, but as of yesterday 1.5 cm induration occurred. Yesterday, he received news that his mother who lives in [place] . The patient became very emotional about this and reportedly had a syncopal episode. There is also apparently transient left lower leg swelling that occurred before his passing out spell that has resolved. The patient has not had any previous loss of postural tone episodes. On my evaluation, patient denies any recent chest discomfort. At present he states that he feels well other than feeling emotionally distraught. He is tearful during our conversation. Allergies Allergy/AdvReac Type Severity Reaction Status Date / Time No Known Allergies Allergy Unverified 06/30/25 18:11 Home Medications Medication Instructions Recorded Confirmed Type No Known Home Medications 06/30/25 06/30/25 History Patient History Social History Smoking Status: Former smoker Hx Alcohol Use: No Hx Substance Use: No Preferred Language: Liberian Communication Ability: Effective Beliefs That Will Affect Care: None Feels Safe at Home: Yes Review of Systems Review of Systems: All systems reviewed & are unremarkable except as noted in HPI & below Physical Exam Physical Exam: General: no acute distress and stated age Eyes: conjunctiva are pink and non-injected, sclera clear Neck: normal jugular venous pulse, no hepatojugular reflux Chest: normal shape and normal respiratory effort Lungs: clear to auscultation and percussion Cardiac Exam: - regular heart sounds, no murmurs, rubs, or gallops, no jugular venous distention Abdomen: abdomen soft, non-tender, no abnormal masses and no hepatosplenomegaly Extremities: no edema and no cyanosis Neuro:awake, conversant, follows commands, no focal motor deficits Results & Data Vital Signs (Past 12 Hours) Vital Signs Pulse Pulse Resp BP Pulse Ox O2 Del Method 07/01/25 09:00 66 18 129/73 99 Room Air 07/01/25 07:03 59 L 07/01/25 05:25 64 20 129/77 Room Air 07/01/25 03:31 60 18 107/58 L 95 Room Air 07/01/25 01:17 62 22 163/80 H 96 Room Air 07/01/25 00:00 71 18 146/76 H 100 Room Air 06/30/25 23:00 70 20 129/75 98 Room Air 06/30/25 22:32 74 Laboratory Results Cardiac Enzymes 06/30/25 07/01/25 Range/Units 18:06 05:28 AST 101 H 83 H (13-39) U/L Troponin I High Sens 12.0 15.2 (0-20) pg/ml Coagulation 06/30/25 Range/Units 18:06 PT 10.4 (9.0-12.0) Seconds APTT 27 (21-31) Seconds CBC 06/30/25 07/01/25 Range/Units 18:06 05:28 WBC 6.88 5.74 (4.8-10.8) K/ul RBC 3.22 L 2.96 L (4.70-6.10) M/uL Hgb 11.4 L 10.4 L (14.0-18.0) g/dl Hct 32.8 L 30.2 L (42.0-52.0) % Plt Count 149 132 (130-400) K/uL Neut # (Auto) 3.95 3.09 (1.40-6.50) K/uL Lymph # (Auto) 1.96 1.76 (1.20-3.40) K/uL Toombs # (Auto) 0.79 H 0.67 H (0.11-0.59) K/uL Eos # (Auto) 0.10 0.14 (0.00-0.50) K/uL Baso # (Auto) 0.06 0.06 (0.00-0.20) K/uL Comprehensive Metabolic Panel 06/30/25 07/01/25 Range/Units 18:06 05:28 Sodium 141 141 (136-145) mmol/L Potassium 4.2 3.7 (3.5-5.1) mmol/L Chloride 104 106 (98-107) mmol/L Carbon Dioxide 31 29 (21-32) mmol/L BUN 9 8 (6-23) mg/dl Creatinine 0.78 0.65 (0.6-1.4) mg/dl Glucose 103 H 89 (70-99(Fasting)) mg/dl Calcium 8.9 8.1 L (8.6-10.3) mg/dl Direct Bilirubin 0.1 (0-0.2) mg/dl AST 101 H 83 H (13-39) U/L ALT 54 H 42 (7-52) U/L Alkaline Phosphatase 181 H 129 H (34-104) U/L Total Protein 7.1 5.8 L (6.0-8.3) gm/dl Albumin 3.4 2.9 L (3.4-5.0) gm/dl CPK level 3,465 --> 3, 046 U/L Diagnostic Findings EKG performed today 06/30/2025 revealed normal sinus rhythm at 74 bpm, normal axis, normal intervals, normal EKG CT of cervical spine: 1. No definite cervical spine fracture 2. Spinal stenosis at C5-6 and C6-7 3. Right C4-5 and C5-6 and left C6-7 neural foramen narrowing, which may affect the exiting nerve roots CT chest:, summary of radiology report: 1. Two well defined solid nodules measuring about 4 mm and 5 mm is noted involving posterior and lateral basal segment of left lower lobe. PG Care Time/CCT Total # of Minutes Spent Total Time Spent with Patient: Total time spent is greater than 50% in coordination of care (as documented) at patient's floor/unit and/or counseling patient: Coding Level of Care Code 23404 IN/OBS CONSULT LVL 4,60M Diagnoses Syncope R55 Rhabdomyolysis M62.82
--- NOTE | 2025-07-01 10:43 | Communication Note ---
Date of Service: July 01, 2025 H/O BCG vaccination and no symptoms suggestive of any TB.[place] [address] chest are negative for any lesion suggestive of TB. TB skin test seems to be false positive and will take off the isolation precaution. Check CRP and ESR and Quantaiferon test for TB Dr oMon abebe
[2025-07-01 14:44] LABS: Folate (Folic Acid),Ser orPlas 15.77 ng/ml (>5.38)
[2025-07-01 14:46] LABS: Vitamin B12 192.0 pg/ml (180-914)
--- NOTE | 2025-07-01 14:58 | Hospitalist Progress Note ---
Date of Service July 01, 2025 Assessment & Plan (1) Syncope: Plan: 54-year-old male with past medical history significant for COVID in 2020 and was in coma and was 25 days in the hospital as per the patient who is currently in [facility] presents with syncope. Patient had a visit from family and was notified that his mother yesterday. Since the news seems patient became very distraught and had a syncopal episode and fell down and hit his head. Patient does not know how long he passed out. After he woke up he was confused for some time. Denies any biting of the tongue. Patient does not know whether he had a bowel or bladder incontinence during the episode. Initially in the ER he was crying. Currently is feeling better. Has some headache.Some blurred visions. No sore throat or cough. Initially had chest pain but is getting better now. Earlier had shortness of breath but is getting better now. Having cough since morning and bringing sputum. Had some nausea. Has some lower abdominal discomfort. Had normal bowel movements in the morning. Micturating okay. Hemodynamics are okay. Patient has rash in his lower extremities he attributes it to complication from his severe COVID . [employer] gave him some cream which he has at home. 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 Couple of days ago his legs were very much swollen. Currently the swelling has come down.His PPD shot on left forearm seems positive Patient thinks he ad reaction from PPD shot and possibly caused leg swelling. Syncope and fall- likely vasovagal Questionable seizures- doubt any seizures Hit his head without any significant injury with negative skeletal survey- CT of the head, cervical spine and x-rays of the chest and pelvis no fractures identified CT abdomen pelvis no acute findings. Diverticulosis. Hepatomegaly. Small left lung base nodule recommend follow-up CT chest in 6 months EKG remains unremarkable and serial troponins did not show any evidence of ACS Appreciate cardiology input and recommendation- awaiting echocardiogram Rhabdomyolysis CPK 3465 Aggressive fluids including increase oral intake Follow repeat labs Elevated LFTs Total bilirubin 0.5. AST 101. ALT 54. Alkaline phos 181. Likely secondary to use of alcohol or fatty liver Awaiting hepatitis panel and LFTs are already improving PPD scee Positive? He is recent PPD test is positive and he does not have any respiratory symptoms suggestive of tuberculosis and he is chest x-ray and CT of the chest is not showing any cavitary lesions or any lesions suggestive of TB [place] been [place] and history of BCG vaccination Likely secondary to BCG vaccination but it still will send sputum for AFB and QuantiFERON test for TB Will also get CRP and ESR for completeness Does not need to be in isolation Awaiting pulmonary evaluation for solid nodules 4 to 5 mm in the left lower lobe Anemia Hemoglobin 11.4 MCV 101 Will check stool for Hemoccult Iron studies, vitamin B12 folate levels Will follow labs DVT prophylaxis Lovenox Disposition Telemetry Full code. Admission and Anticipated Discharge Date Admission Date: June 30, 2025 Subjective 07/01/2025 The patient was seen and examined in emergency room He had a syncopal episode while he was on his feet and heart about sudden use of his mother passing away No warning and no significant symptoms following the episode and no significant injury Has been feeling much better and denies any significant symptoms this morning Review of Systems Review of Systems: all systems reviewed and are unremarkable except as noted below Physical Exam Physical Exam: Lying in bed without any acute distress Constitutional: well developed, well nourished and average body habitus; not ill appearing Eyes: PERRL, conjunctivae normal, anicteric sclerae ENMT: external ear and nose normal, oropharynx normal Neck: trachea midline, no thyromegaly Respiratory: normal respiratory effort, lungs clear to auscultation Cardiovascular: Rate/Rhythm: regular rate and regular rhythm; not tachycardic Heart Sounds: normal S1 and normal S2; no murmur Extremities: no edema Gastrointestinal (Abdomen): Inspection/Auscultation: normal bowel sounds; abdomen not distended Percussion/Palpation: abdomen soft; abdomen nontender Musculoskeletal: No acute arthritis involving any of the joint Neurologic: normal touch/pain/proprioception and moves all extremities; no focal motor deficits Psychiatric: A+Ox3, euthymic affect Lymphatic: no cervical or axillary lymphadenopathy Results & Data Results & Data Vital Signs (Past 12 Hours) Vital Signs Temp Pulse Pulse Resp BP Pulse Ox O2 Del Method 07/01/25 13:43 66 07/01/25 12:29 72 07/01/25 12:19 36.6 C 67 18 126/68 98 Room Air 07/01/25 10:44 67 18 130/81 98 Room Air 07/01/25 09:00 66 18 129/73 99 Room Air 07/01/25 07:03 59 L 07/01/25 05:25 64 20 129/77 Room Air 07/01/25 03:31 60 18 107/58 L 95 Room Air Laboratory Results Short CBC 06/30/25 07/01/25 Range/Units 18:06 05:28 WBC 6.88 5.74 (4.8-10.8) K/ul Hgb 11.4 L 10.4 L (14.0-18.0) g/dl Hct 32.8 L 30.2 L (42.0-52.0) % Plt Count 149 132 (130-400) K/uL BMP 06/30/25 07/01/25 18:06 05:28 Sodium 141 141 Potassium 4.2 3.7 Chloride 104 106 Carbon Dioxide 31 29 BUN 9 8 Creatinine 0.78 0.65 Glucose 103 H 89 Calcium 8.9 8.1 L Cardiac Enzymes 06/30/25 07/01/25 Range/Units 18:06 05:28 Total Creatine Kinase 3465 H 3046 H (30-223) U/L Liver Function 06/30/25 07/01/25 Range/Units 18:06 05:28 Total Bilirubin 0.5 0.4 (0.2-1.0) mg/dl Direct Bilirubin 0.1 (0-0.2) mg/dl AST 101 H 83 H (13-39) U/L ALT 54 H 42 (7-52) U/L Alkaline Phosphatase 181 H 129 H (34-104) U/L Albumin 3.4 2.9 L (3.4-5.0) gm/dl Urine 06/30/25 Range/Units 18:24 Urine Color Yellow Urine Appearance Clear (Clear) Urine pH 7.5 (4.5-7.5) Ur Specific Bynum 1.007 (1.000-1.030) Urine Protein Negative (Negative) Urine Glucose (UA) Negative (Negative) Medications Administered Current Inpatient Medications Acetaminophen (Acetaminophen 325 Mg Tab) 650 mg PO Q4H PRN PRN Reason: Pain or Fever Stop: 07/31/25 00:36 Last Admin: 07/01/25 10:06 Dose: 650 mg Acetaminophen (Acetaminophen 500 Mg Tab) 1,000 mg PO Q8H PRN PRN Reason: Pain Stop: 07/31/25 09:58 Enoxaparin Sodium (Enoxaparin Inj 40 Mg/0.4 Ml Syr) 40 mg SQ Q24H MARCIA Stop: 07/31/25 08:59 Last Admin: 07/01/25 09:15 Dose: 40 mg Hydromorphone HCl (Hydromorphone Inj 0.5 Mg/0.5 Ml Syr) 0.5 mg IV Q6H PRN PRN Reason: Pain Stop: 07/15/25 10:21 Sodium Chloride (Nss) 1,000 mls @ 200 mls/hr IV .Q5H MARCIA Stop: 07/04/25 00:36 Last Admin: 07/01/25 12:13 Dose: 200 mls/hr Nitroglycerin (Nitroglycerin Sl 0.4 Mg/Tab Tab) 0.4 mg SL Q5M PRN PRN Reason: Chest Pain Stop: 07/31/25 00:36
--- NOTE | 2025-07-01 15:13 | Neurology Consultation ---
Date of Consultation July 01, 2025 Assessment & Plan (1) Syncope: Syncope secondary to emotional stress, no specific concern for seizure, no further neurologic workup recommended. Telehealth Consultation Telehealth Information Telehealth Information: I performed this visit using a real-time telehealth connection between my location and the patients location ([facility]). After connecting through interactive tele-video, patient was identified by name and date of and/or wristband check.Patient (or authorized healthcare guest services representative) was informed that this was a telemedicine visit and it was being conducted confidentially over secure lines. My office door was closed and no one else was present in the room with me.Patient (or authorized healthcare guest services representative) provided consent to proceed with the visit, expressed an understanding of privacy and security of the telemedicine visit, and gave permission to have a hospital guest services representative in the room in order to assist with the visit and to conduct portions of the visit, as needed. I informed the patient (or authorized healthcare guest services representative) that I reviewed their record and presented the opportunity for them to ask any questions regarding the visit today. The patient agreed to participate. History of Present Illness Reason for Consultation: Loss of consciousness Requesting Physician: Dr. Hidalgo Attending Physician: Carmine Hidalgo MD History of Present Illness Myke Gibbons is a 54 yo M presenting from [facility] after a loss of consciousness when he found out his mother had . He recalls his heart racing and he felt short of breath before passing out. His hearing was muffled. He was brought by guards to [facility]. No seizure history no seizure like activity. He feels well today. Allergies Allergy/AdvReac Type Severity Reaction Status Date / Time No Known Allergies Allergy Unverified 06/30/25 18:11 Home Medications Medication Instructions Recorded Confirmed Type No Known Home Medications 06/30/25 06/30/25 History Patient History Social History Smoking Status: Former smoker Hx Alcohol Use: No Hx Substance Use: No Preferred Language: [place] Citizen Communication Ability: Effective Beliefs That Will Affect Care: None Feels Safe at Home: Yes Review of Systems +loss of consciousness Physical Exam Awake and alert, speech fluent, face symmetric, normal gait, antigravity strength throughout. Results & Data Vital Signs (Past 12 Hours) Vital Signs Temp Pulse Pulse Resp BP Pulse Ox O2 Del Method 07/01/25 13:43 66 07/01/25 12:29 72 07/01/25 12:19 36.6 C 67 18 126/68 98 Room Air 07/01/25 10:44 67 18 130/81 98 Room Air 07/01/25 09:00 66 18 129/73 99 Room Air 07/01/25 07:03 59 L 07/01/25 05:25 64 20 129/77 Room Air 07/01/25 03:31 60 18 107/58 L 95 Room Air Laboratory Results Abnormal lab results 06/30/25 06/30/25 06/30/25 Range/Units 18:06 18:10 18:24 RBC 3.22 L (4.70-6.10) M/uL Hgb 11.4 L (14.0-18.0) g/dl POC Hgb 11.9 L (14.0-18.0) g/dl Hct 32.8 L (42.0-52.0) % POC Hct 35 L (42-52) % MCV 101.9 H (80.0-100.0) fL MCH 35.4 H (25.0-34.0) pg RDW Std Deviation 58.8 H (36.4-46.3) fL RDW Coeff of Steffanie 15.9 H (11.5-14.5) % [place] # (Auto) 0.79 H (0.11-0.59) K/uL ESR (0-20) mm/hr POC Anion Gap 15.0 L (16-25) mmol/L Glucose 103 H (70-99(Fasting)) mg/dl POC Glucose (other) 103 H (70-99) mg/dl Calcium (8.6-10.3) mg/dl POC Ioniz Calcium Deann 1.07 L (1.12-1.32) mmol/l Transferrin % Sat (20-50) % AST 101 H (13-39) U/L ALT 54 H (7-52) U/L Alkaline Phosphatase 181 H (34-104) U/L Total Creatine Kinase 3465 H (30-223) U/L Total Protein (6.0-8.3) gm/dl Albumin (3.4-5.0) gm/dl Ur Leukocyte Esterase Trace H (Negative) 07/01/25 07/01/25 Range/Units 05:28 11:03 RBC 2.96 L (4.70-6.10) M/uL Hgb 10.4 L (14.0-18.0) g/dl POC Hgb (14.0-18.0) g/dl Hct 30.2 L (42.0-52.0) % POC Hct (42-52) % MCV 102.0 H (80.0-100.0) fL MCH 35.1 H (25.0-34.0) pg RDW Std Deviation 60.1 H (36.4-46.3) fL RDW Coeff of Steffanie 16.0 H (11.5-14.5) % [place] # (Auto) 0.67 H (0.11-0.59) K/uL ESR 23 H (0-20) mm/hr POC Anion Gap (16-25) mmol/L Glucose (70-99(Fasting)) mg/dl POC Glucose (other) (70-99) mg/dl Calcium 8.1 L (8.6-10.3) mg/dl POC Ioniz Calcium Deann (1.12-1.32) mmol/l Transferrin % Sat 12 L (20-50) % AST 83 H (13-39) U/L ALT (7-52) U/L Alkaline Phosphatase 129 H (34-104) U/L Total Creatine Kinase 3046 H (30-223) U/L Total Protein 5.8 L (6.0-8.3) gm/dl Albumin 2.9 L (3.4-5.0) gm/dl Ur Leukocyte Esterase (Negative) Diagnostic Findings Abdomen/Pelvis CT 06/30/25 18:03 Clinical History: Syncopal episode. Fall Technique: Axial computed tomography images were obtained of the abdomen and pelvis after the administration of intravenous contrast. No prior CT is available for comparison. Findings: The liver is enlarged. There is no sign of cirrhosis or significant fatty infiltration. There are suspected small cysts in the right hepatic lobe. No liver mass lesion is seen. The portal vein is patent. The gallbladder appears unremarkable. No bile duct dilatation is noted. The spleen is of normal size. No focal splenic lesion is evident. The pancreas appears normal with no sign of acute or chronic pancreatitis and no mass lesion noted. The pancreatic duct is of normal caliber. The adrenal glands appear unremarkable. There are small bilateral renal calculi, measuring 2-3 mm. There is no hydronephrosis or perinephric stranding. No renal mass lesion is identified. The aorta is of normal caliber. No abdominal adenopathy is seen. The stomach appears normal. There is no sign of small bowel obstruction. There is diverticulosis without evidence of diverticulosis. No free intraperitoneal fluid or air is identified. No distal ureteral or bladder calculi are seen. There is mild prominence of the bladder wall that could be due to incomplete distention. The iliac arteries are of normal caliber. No pelvic adenopathy is noted. There is a small calcified granuloma in the right lower lobe. There is a 4 mm noncalcified left lower lobe nodule Mild thoracolumbar degenerative disc disease is seen. No fracture is identified. No focal osseous lesion is seen Impression: 1. No definite sign of abdominal organ injury after trauma 2. Small hepatic cysts 3. Small nonobstructing renal calculi 4. Diverticulosis without evidence of diverticulitis 5. Mild prominence of the wall of the urinary bladder. This appearance could be due to incomplete distention, though infectious cystitis or other pathology cannot be excluded. Correlation with urinalysis may be useful 6. Small left lung base nodule, likely benign but indeterminate in nature. A follow-up chest CT could be obtained in 6 months 7. Hepatomegaly ACT 112: Positive. There are findings on this exam that require communication between the performing entity and the patient following Patient Test Result Information Act ([place] ACT 112) guidelines. Electronically signed by Venkat Perez 06-30-2025 6:53 PM Chest X-Ray 06/30/25 18:03 Clinical History: Trauma Technique: 2 frontal views of the chest were obtained Findings: There are no confluent pulmonary infiltrates. The heart size is at the upper limit of normal. No pleural effusion or pneumothorax is seen. There is no definite pulmonary nodule. No fracture is noted. No foreign body is seen Impression: No active disease Electronically signed by Venkat Perez 06-30-2025 6:44 PM Pelvis X-Ray 06/30/25 18:03 Clinical History: Trauma 1 view of the pelvis is submitted for review. Findings: No fracture or dislocation is seen. No significant arthritic changes are noted. No other osseous abnormality is identified. There are no radiopaque foreign bodies. Impression: Unremarkable pelvic radiograph Electronically signed by Venkat Perez 06-30-2025 6:[address] 06/30/25 18:04 Clinical history: Syncope. Fall Technique: Axial computed tomography images were obtained of the cervical spine without intravenous contrast. Sagittal and coronal reconstructions were obtained Findings: No fracture is identified. No listhesis is seen. No focal osseous lesion is evident. The atlantoaxial articulation appears unremarkable. At C2-3, no disc herniation is identified. There is no spinal stenosis. The neural foramen are patent At C3-4, no disc herniation is identified. There is no spinal stenosis. The neural foramen are patent At C4-5, there is a disc bulge without spinal stenosis. There is right neural foramen narrowing that may affect the right C5 nerve root At C5-6, there is spinal stenosis due to a disc bulge. There is right neural foramen narrowing that may affect the right C6 nerve root At C6-7, there is mild spinal stenosis due to a disc bulge. There is left neural foramen narrowing that may affect the right C7 nerve root At C7-T1,no disc herniation is identified. There is no spinal stenosis. The neural foramen are patent The lung apices appear clear. The visualized soft tissues of the neck appear unremarkable. No foreign body is seen Impression: 1. No definite cervical spine fracture 2. Spinal stenosis at C5-6 and C6-7 3. Right C4-5 and C5-6 and left C6-7 neural foramen narrowing, which may affect the exiting nerve roots Electronically signed by Venkat Perez 06-30-2025 6:[address] 06/30/25 18:04 Clinical History: Syncope. Fall Technique: Axial computed tomography images were obtained of the brain without intravenous contrast. Findings: There is mild cerebral atrophy, within expected limits for the patient's age. Areas of decreased attenuation are seen within the periventricular white matter, likely representing chronic small vessel ischemic disease. There is no definite sign of acute or old infarction. No intracranial hemorrhage is evident. No definite mass lesion is seen on this noncontrast examination. There is no midline shift or other form of herniation. No hydrocephalus is seen. No fracture is identified. The orbits and the visualized paranasal sinuses appear unremarkable. The mastoid air cells appear clear. Impression: 1. Cerebral atrophy and chronic small vessel ischemic disease 2. Otherwise unremarkable noncontrast CT of the brain Electronically signed by Venkat Perez 06-30-2025 6:[address] 06/30/25 23:08 EXAM: CT chest diagnostic wo con CLINICAL HISTORY: lung nodule ppd positive TECHNIQUE: Contiguous axial images were obtained from the neck base through the upper abdomen without contrast. In addition, sagittal and coronal reconstructions were performed to potentially increase the sensitivity for the detection of disease. CT scan was performed according to ALARA (as low as reasonable achievable). COMPARISON: None. FINDINGS: Two well defined nodule measuring about 4 mm and 5 mm is noted involving posterior and lateral basal segment of left lower lobe. Rest of lungs are clear. The central airways are patent. There are no pleural effusions. No pneumothorax is seen. Evaluation of the mediastinum and aleksandar is limited due to the lack of intravenous contrast. No axillary or mediastinal adenopathy is identified. The thyroid is unremarkable. The heart, aorta, and pulmonary arteries are of normal size and configuration. There are no appreciable coronary artery and aortic atherosclerotic calcifications. No pericardial effusion is identified. Imaged portions of the upper abdomen are unremarkable. No aggressive appearing osseous lesions are identified. IMPRESSION: 1. Two well defined solid nodules measuring about 4 mm and 5 mm is noted involving posterior and lateral basal segment of left lower lobe. Suggested follow up according to Fleischner society guidelines. Electronically signed by Moustapha Vanessa 07-01-2025 01:17 AM
--- NOTE | 2025-07-01 20:01 | Electrocardiogram Report ---
Test Reason : Blood Pressure : */* mmHG Vent. Rate : 74 BPM Atrial Rate : 74 BPM P-R Int : 182 ms QRS Dur : 98 ms QT Int : 390 ms P-R-T Axes : 62 58 38 degrees QTcB Int : 432 ms Normal sinus rhythm Normal ECG No previous ECGs available Confirmed by Matthieu Gomez ([id number]) on 07/01/2025 8:01:11 PM Referred By: Bossman Ochoa Confirmed By: Matthieu Gomez
[2025-07-02] MEDS: CHLORASEPTIC (PHENOL) 1.4% SOLN 180 ML BTL MT PRN (03:10)
[2025-07-02 08:46] LABS: Hematocrit (blood only) 31.8 % (42.0-52.0); Hemoglobin 10.8 g/dl (14.0-18.0); Immature Granulocytes # (auto) 0.01 K/uL (0.01-0.20); Immature Granulocytes % (auto) 0.2 %; Mean Corpuscular Hemoglobin 34.5 pg (25.0-34.0); Mean Corpuscular Volume 101.6 fL (80.0-100.0); Platelet Count 130 K/uL (130-400); RDW Standard Deviation 59.6 fL (36.4-46.3); Red Blood Count 3.13 M/uL (4.70-6.10); White Blood Count 5.89 K/ul (4.8-10.8)
[2025-07-02 09:27] LABS: Anion Gap 6.0 (3-11); Blood Urea Nitrogen 6.0 mg/dl (6-23); Calcium 8.2 mg/dl (8.6-10.3); Carbon Dioxide 29.0 mmol/L (21-32); Chloride 106.0 mmol/L (98-107); Creatinine Clr Calc Pharmacy 133.6 ml/min; Glucose 96.0 mg/dl (70-99(Fasting)); Magnesium 1.7 mg/dl (1.7-2.4); Potassium 3.6 mmol/L (3.5-5.1); Sodium 141.0 mmol/L (136-145)
[2025-07-02 09:53] LABS: Alanine Aminotransferase 48.0 U/L (7-52); Alkaline Phosphatase 129.0 U/L (34-104); Bilirubin,Total 0.5 mg/dl (0.2-1.0); Total Protein 6.3 gm/dl (6.0-8.3)
--- NOTE | 2025-07-02 11:53 | Hospitalist Progress Note ---
Date of Service July 02, 2025 Assessment & Plan (1) Syncope: Plan: 54-year-old male with past medical history significant for COVID in 2020 and was in coma and was 25 days in the hospital as per the patient who is currently in custodial presents with syncope. Patient had a visit from family and was notified that his mother yesterday. Since the news seems patient became very distraught and had a syncopal episode and fell down and hit his head. Patient does not know how long he passed out. After he woke up he was confused for some time. Denies any biting of the tongue. Patient does not know whether he had a bowel or bladder incontinence during the episode. Initially in the ER he was crying. Currently is feeling better. Has some headache.Some blurred visions. No sore throat or cough. Initially had chest pain but is getting better now. Earlier had shortness of breath but is getting better now. Having cough since morning and bringing sputum. Had some nausea. Has some lower abdominal discomfort. Had normal bowel movements in the morning. Micturating okay. Hemodynamics are okay. Patient has rash in his lower extremities he attributes it to complication from his severe COVID . Financial Manager gave him some cream which he has at home. 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 Couple of days ago his legs were very much swollen. Currently the swelling has come down.His PPD shot on left forearm seems positive Patient thinks he ad reaction from PPD shot and possibly caused leg swelling. Syncope and fall- likely vasovagal Questionable seizures- doubt any seizures Hit his head without any significant injury with negative skeletal survey- CT of the head, cervical spine and x-rays of the chest and pelvis no fractures identified CT abdomen pelvis no acute findings. Diverticulosis. Hepatomegaly. Small left lung base nodule recommend follow-up CT chest in 6 months EKG remains unremarkable and serial troponins did not show any evidence of ACS Appreciate cardiology input and recommendation- awaiting echocardiogram Echo has been unremarkable and does not have any arrhythmias to suggest any cardiac cause of syncope He will be discharged this afternoon Rhabdomyolysis CPK [id number] Aggressive fluids including increase oral intake Follow repeat labs- his CPK has gone up to more than 5000 He will be given additional intravenous fluid and will be rechecked in the afternoon if CPK has been improving he will be discharged home Elevated LFTs Total bilirubin 0.5. AST 101. ALT 54. Alkaline phos 181. Likely secondary to use of alcohol or fatty liver Awaiting hepatitis panel and LFTs are already improving LFTs are improving PPD scee Positive? He is recent PPD test is positive and he does not have any respiratory symptoms suggestive of tuberculosis and he is chest x-ray and CT of the chest is not showing any cavitary lesions or any lesions suggestive of TB [place] been [place] and history of BCG vaccination Likely secondary to BCG vaccination but it still will send sputum for AFB and QuantiFERON test for TB Will also get CRP and ESR for completeness Does not need to be in isolation Awaiting pulmonary evaluation for solid nodules 4 to 5 mm in the left lower lobe Doubt any tuberculosis and awaiting definitive test Anemia Hemoglobin 11.4 MCV 101 Will check stool for Hemoccult Iron studies, vitamin B12 folate levels Will follow labs DVT prophylaxis Lovenox Disposition Telemetry Full code. Admission and Anticipated Discharge Date Admission Date: June 30, 2025 Subjective 07/01/2025 The patient was seen and examined in emergency room He had a syncopal episode while he was on his feet and heart about sudden use of his mother passing away No warning and no significant symptoms following the episode and no significant injury Has been feeling much better and denies any significant symptoms this morning 07/02/2025 The patient was seen and examined in telemetry unit He has been stable without any acute symptoms His blood pressure remains on the lower side at 92/55 and does not have any symptoms and he wants to be discharged Review of Systems Review of Systems: all systems reviewed and are unremarkable except as noted below Physical Exam Physical Exam: Lying in bed without any acute distress Constitutional: well developed, well nourished and average body habitus; not ill appearing Eyes: PERRL, conjunctivae normal, anicteric sclerae ENMT: external ear and nose normal, oropharynx normal Neck: trachea midline, no thyromegaly Respiratory: normal respiratory effort, lungs clear to auscultation Cardiovascular: Rate/Rhythm: regular rate and regular rhythm; not tachycardic Heart Sounds: normal S1 and normal S2; no murmur Extremities: no edema Gastrointestinal (Abdomen): Inspection/Auscultation: normal bowel sounds; abdomen not distended Percussion/Palpation: abdomen soft; abdomen nontender Musculoskeletal: no acute arthritis involving any of the joint Neurologic: normal touch/pain/proprioception and moves all extremities; no focal motor deficits Psychiatric: A+Ox3, euthymic affect Lymphatic: no cervical or axillary lymphadenopathy Results & Data Results & Data Vital Signs (Past 12 Hours) Vital Signs Temp Pulse Pulse Resp BP Pulse Ox O2 Del Method 07/02/25 11:26 36.5 C 75 16 90/58 L 96 Room Air 07/02/25 09:00 66 07/02/25 07:24 37.0 C 75 14 127/71 97 Room Air 07/02/25 03:00 36.8 C 68 16 114/63 94 Room Air Laboratory Results Short CBC 07/02/25 Range/Units 08:29 WBC 5.89 (4.8-10.8) K/ul Hgb 10.8 L (14.0-18.0) g/dl Hct 31.8 L (42.0-52.0) % Plt Count 130 (130-400) K/uL BMP 07/02/25 08:29 Sodium 141 Potassium 3.6 Chloride 106 Carbon Dioxide 29 BUN 6 Creatinine 0.69 Glucose 96 Calcium 8.2 L Cardiac Enzymes 07/02/25 Range/Units 10:02 Total Creatine Kinase 5228 H (30-223) U/L Liver Function 07/02/25 Range/Units 08:29 Total Bilirubin 0.5 (0.2-1.0) mg/dl Direct Bilirubin 0.1 (0-0.2) mg/dl AST 115 H (13-39) U/L ALT 48 (7-52) U/L Alkaline Phosphatase 129 H (34-104) U/L Albumin 3.2 L (3.4-5.0) gm/dl Medications Administered Current Inpatient Medications Acetaminophen (Acetaminophen 325 Mg Tab) 650 mg PO Q4H PRN PRN Reason: Pain or Fever Stop: 07/31/25 00:36 Last Admin: 07/01/25 10:06 Dose: 650 mg Acetaminophen (Acetaminophen 500 Mg Tab) 1,000 mg PO Q8H PRN PRN Reason: Pain Stop: 07/31/25 09:58 Enoxaparin Sodium (Enoxaparin Inj 40 Mg/0.4 Ml Syr) 40 mg SQ Q24H MARCIA Stop: 07/31/25 08:59 Last Admin: 07/02/25 08:38 Dose: 40 mg Hydromorphone HCl (Hydromorphone Inj 0.5 Mg/0.5 Ml Syr) 0.5 mg IV Q6H PRN PRN Reason: Pain Stop: 07/15/25 10:21 Sodium Chloride (Nss) 1,000 mls @ 200 mls/hr IV .Q5H MARCIA Stop: 07/02/25 21:44 Nitroglycerin (Nitroglycerin Sl 0.4 Mg/Tab Tab) 0.4 mg SL Q5M PRN PRN Reason: Chest Pain Stop: 07/31/25 00:36 Phenol (Chloraseptic (Phenol) 1.4% Soln 180 Ml Btl) 1 sprays MT Q6H PRN PRN Reason: Sore Throat Stop: 07/31/25 22:34 Last Admin: 07/02/25 03:10 Dose: 1 sprays
--- NOTE | 2025-07-02 12:14 | Electrocardiogram Report ---
Test Reason : Blood Pressure : */* mmHG Vent. Rate : 66 BPM Atrial Rate : 66 BPM P-R Int : 200 ms QRS Dur : 94 ms QT Int : 398 ms P-R-T Axes : 40 46 33 degrees QTcB Int : 417 ms Normal sinus rhythm Normal ECG When compared with ECG of 30-Jun-2025 19:05, No significant change was found Confirmed by Davide Headley ([id number]) on 07/02/2025 12:14:27 PM Referred By: Bossman Ochoa Confirmed By: Davide Headley
--- NOTE | 2025-07-02 12:33 | Cardiology Progress Note ---
Date of Service July 02, 2025 Assessment & Plan (1) Syncope: Plan: * Troponin negative x 4. EKG within normal limits.Telemetry reveals normal sinus rhythm without arrhythmia. * Echocardiogram reveals no evidence of structural heart disease, borderline dilatation of the aortic root, 3.8 cm * Symptoms suggest loss of postural tone in the setting of acute emotional state / grief. (2) Rhabdomyolysis: Plan: * agree with IV fluids (3) abnormal TB skin test, non smoker, incidental pulmonary nodules * Pulmonary input noted and appreciated. Latent TB No additional cardiac testing felt to be indicated patient stable from a cardiac perspective for discharge. Rosalie Denton DO Admission and Anticipated Discharge Date Admission Date: June 30, 2025 Subjective Patient seen in cardiology follow-up. Feels well. No lightheadedness or dizziness. Telemetry reveals sinus rhythm in 70s without arrhythmia. Review of Systems Review of Systems: All systems reviewed & are unremarkable except as noted in HPI & below Physical Exam Physical Exam: General: no acute distress and stated age Eyes: conjunctiva are pink and non-injected, sclera clear Neck: normal jugular venous pulse, no hepatojugular reflux Chest: normal shape and normal respiratory effort Lungs: clear to auscultation and percussion Cardiac Exam: - regular heart sounds, no murmurs, rubs, or gallops, no jugular venous distention Abdomen: abdomen soft, non-tender, no abnormal masses and no hepatosplenomegaly Extremities: no edema and no cyanosis Neuro:awake, conversant, follows commands, no focal motor deficits Psych: appropriate affect and insight. Results & Data Vital Signs (Past 12 Hours) Vital Signs Temp Pulse Pulse Resp BP Pulse Ox O2 Del Method 07/02/25 11:26 36.5 C 75 16 90/58 L 96 Room Air 07/02/25 09:00 66 07/02/25 07:24 37.0 C 75 14 127/71 97 Room Air 07/02/25 03:00 36.8 C 68 16 114/63 94 Room Air Diagnostic Findings Summary of transthoracic echocardiogram performed today 07/02/2025: There is normal left ventricular wall thickness. No regional wall motion abnormalities noted. Left ventricular systolic function is normal. Left Ventricular Ejection Fraction = 60-65%. There is no significant valvular disease. The aortic root is borderline dilated, 3.8 cm. The proximal ascending order was not visualized adequately enough to allow for measurement. EKG performed today 07/02/2025 at 636 and interpreted dependently: Normal sinus rhythm at 66 bpm, EKG shows NSR with normal intervals, normal QRS complexes, no ST elevation or depression, and no arrhythmias. PG Care Time/CCT Total # of Minutes Spent Total Time Spent with Patient: Total time spent is greater than 50% in coordination of care (as documented) at patient's floor/unit and/or counseling patient: Coding Level of Care Code 05654 SUB INP/OBS CARE 235MIN Diagnoses Syncope R55 Rhabdomyolysis M62.82
[2025-07-02] MEDS: SODIUM CHLORIDE 0.9% 1,000 ML IV SCH (12:34)
[2025-07-03 07:33] LABS: Anion Gap 7.0 (3-11); Blood Urea Nitrogen 7.0 mg/dl (6-23); Calcium 8.1 mg/dl (8.6-10.3); Carbon Dioxide 28.0 mmol/L (21-32); Chloride 107.0 mmol/L (98-107); Creatinine Clr Calc Pharmacy 148.6 ml/min; Glucose 87.0 mg/dl (70-99(Fasting)); Potassium 3.6 mmol/L (3.5-5.1); Sodium 142.0 mmol/L (136-145)
[2025-07-03 08:11] LABS: Creatine Kinase 3979.0 U/L (30-223)
--- NOTE | 2025-07-03 10:58 | Hospitalist Progress Note ---
Date of Service July 03, 2025 Assessment & Plan (1) Syncope: Plan: 54-year-old male with past medical history significant for COVID in 2020 and was in coma and was 25 days in the hospital as per the patient who is currently in retirement presents with syncope. Patient had a visit from family and was notified that his mother yesterday. Since the news seems patient became very distraught and had a syncopal episode and fell down and hit his head. Patient does not know how long he passed out. After he woke up he was confused for some time. Denies any biting of the tongue. Patient does not know whether he had a bowel or bladder incontinence during the episode. Initially in the ER he was crying. Currently is feeling better. Has some headache.Some blurred visions. No sore throat or cough. Initially had chest pain but is getting better now. Earlier had shortness of breath but is getting better now. Having cough since morning and bringing sputum. Had some nausea. Has some lower abdominal discomfort. Had normal bowel movements in the morning. Micturating okay. Hemodynamics are okay. Patient has rash in his lower extremities he attributes it to complication from his severe COVID . [employer] Specialist gave him some cream which he has at home. 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 Couple of days ago his legs were very much swollen. Currently the swelling has come down.His PPD shot on left forearm seems positive Patient thinks he ad reaction from PPD shot and possibly caused leg swelling. Syncope and fall- likely vasovagal Questionable seizures- doubt any seizures Hit his head without any significant injury with negative skeletal survey- CT of the head, cervical spine and x-rays of the chest and pelvis no fractures identified CT abdomen pelvis no acute findings. Diverticulosis. Hepatomegaly. Small left lung base nodule recommend follow-up CT chest in 6 months EKG remains unremarkable and serial troponins did not show any evidence of ACS Appreciate cardiology input and recommendation- awaiting echocardiogram Echo has been unremarkable and does not have any arrhythmias to suggest any cardiac cause of syncope He will be discharged this afternoon No more episodes of syncope, no arrhythmias and no neurological symptoms Rhabdomyolysis CPK 3465 Aggressive fluids including increase oral intake Follow repeat labs- his CPK has gone up to more than 5000 He will be given additional intravenous fluid and will be rechecked in the afternoon if CPK has been improving he will be discharged home He is a repeat CK was more than 5000 yesterday and this morning it is less than 4000 He will be discharged home this afternoon and advised to drink more fluid Elevated LFTs Total bilirubin 0.5. AST 101. ALT 54. Alkaline phos 181. Likely secondary to use of alcohol or fatty liver Awaiting hepatitis panel and LFTs are already improving LFTs are improving and hepatitis panel is not yet back- PPD scee Positive? He is recent PPD test is positive and he does not have any respiratory symptoms suggestive of tuberculosis and he is chest x-ray and CT of the chest is not showing any cavitary lesions or any lesions suggestive of TB [place] and history of BCG vaccination Likely secondary to BCG vaccination but it still will send sputum for AFB and QuantiFERON test for TB Will also get CRP and ESR for completeness Does not need to be in isolation Awaiting pulmonary evaluation for solid nodules 4 to 5 mm in the left lower lobe Doubt any tuberculosis and awaiting definitive test Anemia Hemoglobin 11.4 MCV 101 Will check stool for Hemoccult Iron studies, vitamin B12 folate levels Will follow labs DVT prophylaxis Lovenox Disposition Telemetry Full code. Admission and Anticipated Discharge Date Admission Date: June 30, 2025 Subjective 07/01/2025 The patient was seen and examined in emergency room He had a syncopal episode while he was on his feet and heart about sudden use of his mother passing away No warning and no significant symptoms following the episode and no significant injury Has been feeling much better and denies any significant symptoms this morning 07/02/2025 The patient was seen and examined in telemetry unit He has been stable without any acute symptoms His blood pressure remains on the lower side at 92/55 and does not have any symptoms and he wants to be discharged 07/03/2025 The patient was seen and examined in telemetry unit He has minimal cough but no other symptoms He is CK level has gone down and he will be discharged home this afternoon Review of Systems Review of Systems: all systems reviewed and are unremarkable except as noted below Physical Exam Physical Exam: Lying in bed without any acute distress Constitutional: well developed, well nourished and average body habitus; not ill appearing Eyes: PERRL, conjunctivae normal, anicteric sclerae ENMT: external ear and nose normal, oropharynx normal Neck: trachea midline, no thyromegaly Respiratory: normal respiratory effort, lungs clear to auscultation Cardiovascular: Rate/Rhythm: regular rate and regular rhythm; not tachycardic Heart Sounds: normal S1 and normal S2; no murmur Extremities: no edema Gastrointestinal (Abdomen): Inspection/Auscultation: normal bowel sounds; abdomen not distended Percussion/Palpation: abdomen soft; abdomen nontender Neurologic: normal touch/pain/proprioception and moves all extremities; no focal motor deficits Psychiatric: A+Ox3, euthymic affect Lymphatic: no cervical or axillary lymphadenopathy Results & Data Results & Data Vital Signs (Past 12 Hours) Vital Signs Temp Pulse Pulse Resp BP Pulse Ox O2 Del Method 07/03/25 08:00 57 L 07/03/25 06:00 36.7 C 110 H 20 131/71 94 Room Air 07/03/25 02:50 36.8 C 63 18 120/66 93 Room Air 07/02/25 23:22 58 L Laboratory Results BMP 07/03/25 06:39 Sodium 142 Potassium 3.6 Chloride 107 Carbon Dioxide 28 BUN 7 Creatinine 0.62 Glucose 87 Calcium 8.1 L Cardiac Enzymes 07/02/25 07/03/25 Range/Units 16:11 06:39 Total Creatine Kinase 5528 H 3979 H (30-223) U/L Medications Administered Current Inpatient Medications Acetaminophen (Acetaminophen 325 Mg Tab) 650 mg PO Q4H PRN PRN Reason: Pain or Fever Stop: 07/31/25 00:36 Last Admin: 07/02/25 16:46 Dose: 650 mg Acetaminophen (Acetaminophen 500 Mg Tab) 1,000 mg PO Q8H PRN PRN Reason: Pain Stop: 07/31/25 09:58 Enoxaparin Sodium (Enoxaparin Inj 40 Mg/0.4 Ml Syr) 40 mg SQ Q24H MARCIA Stop: 07/31/25 08:59 Last Admin: 07/03/25 08:46 Dose: 40 mg Hydromorphone HCl (Hydromorphone Inj 0.5 Mg/0.5 Ml Syr) 0.5 mg IV Q6H PRN PRN Reason: Pain Stop: 07/15/25 10:21 Nitroglycerin (Nitroglycerin Sl 0.4 Mg/Tab Tab) 0.4 mg SL Q5M PRN PRN Reason: Chest Pain Stop: 07/31/25 00:36 Phenol (Chloraseptic (Phenol) 1.4% Soln 180 Ml Btl) 1 sprays MT Q6H PRN PRN Reason: Sore Throat Stop: 07/31/25 22:34 Last Admin: 07/02/25 03:10 Dose: 1 sprays
--- NOTE | 2025-07-03 14:42 | Discharge Summary ---
Date of Service July 03, 2025 Admission HPI Per Admitting Provider 54-year-old male with past medical history significant for COVID in 2020 and was in coma and was 25 days in the hospital as per the patient who is currently in alf presents with syncope. Patient had a visit from family and was notified that his mother yesterday. Since the news seems patient became very distraught and had a syncopal episode and fell down and hit his head. Patient does not know how long he passed out. After he woke up he was confused for some time. Denies any biting of the tongue. Patient does not know whether he had a bowel or bladder incontinence during the episode. Initially in the ER he was crying. Currently is feeling better. Has some headache.Some blurred visions. No sore throat or cough. Initially had chest pain but is getting better now. Earlier had shortness of breath but is getting better now. Having cough since morning and bringing sputum. Had some nausea. Has some lower abdominal discomfort. Had normal bowel movements in the morning. Micturating okay. Hemodynamics are okay. Patient has rash in his lower extremities he attributes it to complication from his severe COVID . Tax Accounting Manager gave him some cream which he has at home. 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 Couple of days ago his legs were very much swollen. Currently the swelling has come down.His PPD shot on left forearm seems positive Patient thinks he ad reaction from PPD shot and possibly caused leg swelling. Past medical history. As mentioned above. Past surgical history. Left inguinal hernia repair. Liver biopsy. Social history. Patient states he used to smoke for here and there small amounts. Currently not drinking alcohol. Denies any drug use. Family history. Mother from heart attack. Admission Exam Per Admitting Provider Physical Exam: General- Not in distress. Head- atraumatic Eyes- PERRL. ENT- oropharynx clear Neck- supple, no JVD. Lungs- clear to auscultation no wheezing or crackles Heart- regular rate and rhythm; no murmur, no gallop. Abdomen- normal bowel sounds, soft, nontender, no distension Extremities- trace pretibial edema, scaly erythematous rash seen on lower extremity. Neuro- alert, oriented PERRL, no facial palsy; no dysarthria; moves extremities Principal Diagnosis Syncope likely vasovagal, rhabdomyolysis. May have latent TB Discharge Exam Lying in bed without any acute distress Constitutional well developed, well nourished and average body habitus; not ill appearing Eyes PERRL, conjunctivae normal, anicteric sclerae ENMT external ear and nose normal, oropharynx normal Neck trachea midline, no thyromegaly Respiratory normal respiratory effort, lungs clear to auscultation Cardiovascular Rate/Rhythm: regular rate and regular rhythm; not tachycardic Heart Sounds: normal S1 and normal S2; no murmur Extremities: no edema Gastrointestinal (Abdomen) Inspection/Auscultation: normal bowel sounds; abdomen not distended Percussion/Palpation: abdomen soft; abdomen nontender Neurologic normal touch/pain/proprioception and moves all extremities; no focal motor deficits Psychiatric A+Ox3, euthymic affect Lymphatic no cervical or axillary lymphadenopathy Discharge Data Allergies Allergy/AdvReac Type Severity Reaction Status Date / Time No Known Allergies Allergy Unverified 06/30/25 18:11 Consultations 06/30/25 19:18 ED Decision to Admit Stat 07/01/25 08:00 Consult Cardiology Routine Consult Neurology Routine Consult Pulmonology Routine Ordered Studies 06/30/25 18:03 CT abd pelvis IV con only Stat 06/30/25 18:04 CT cervical spine wo con Stat CT head/brain wo con Stat 06/30/25 23:08 CT chest diagnostic wo con Urgent Hospital Course (1) Syncope: 54-year-old male with past medical history significant for COVID in 2020 and was in coma and was 25 days in the hospital as per the patient who is currently in alf presents with syncope. Patient had a visit from family and was notified that his mother yesterday. Since the news seems patient became very distraught and had a syncopal episode and fell down and hit his head. Patient does not know how long he passed out. After he woke up he was confused for some time. Denies any biting of the tongue. Patient does not know whether he had a bowel or bladder incontinence during the episode. Initially in the ER he was crying. Currently is feeling better. Has some headache.Some blurred visions. No sore throat or cough. Initially had chest pain but is getting better now. Earlier had shortness of breath but is getting better now. Having cough since morning and bringing sputum. Had some nausea. Has some lower abdominal discomfort. Had normal bowel movements in the morning. Micturating okay. Hemodynamics are okay. Patient has rash in his lower extremities he attributes it to complication from his severe COVID . Tax Accounting Manager gave him some cream which he has at home. 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 Couple of days ago his legs were very much swollen. Currently the swelling has come down.His PPD shot on left forearm seems positive Patient thinks he ad reaction from PPD shot and possibly caused leg swelling. Syncope and fall- likely vasovagal Questionable seizures- doubt any seizures Hit his head without any significant injury with negative skeletal survey- CT of the head, cervical spine and x-rays of the chest and pelvis no fractures identified CT abdomen pelvis no acute findings. Diverticulosis. Hepatomegaly. Small left lung base nodule recommend follow-up CT chest in 6 months EKG remains unremarkable and serial troponins did not show any evidence of ACS Appreciate cardiology input and recommendation- awaiting echocardiogram Echo has been unremarkable and does not have any arrhythmias to suggest any cardiac cause of syncope He will be discharged this afternoon No more episodes of syncope, no arrhythmias and no neurological symptoms Rhabdomyolysis CPK 3465 Aggressive fluids including increase oral intake Follow repeat labs- his CPK has gone up to more than 5000 He will be given additional intravenous fluid and will be rechecked in the afternoon if CPK has been improving he will be discharged home He is a repeat CK was more than 5000 yesterday and this morning it is less than 4000 He will be discharged home this afternoon and advised to drink more fluid Elevated LFTs Total bilirubin 0.5. AST 101. ALT 54. Alkaline phos 181. Likely secondary to use of alcohol or fatty liver Awaiting hepatitis panel and LFTs are already improving LFTs are improving and hepatitis panel is not yet back- PPD scee Positive? He is recent PPD test is positive and he does not have any respiratory symptoms suggestive of tuberculosis and he is chest x-ray and CT of the chest is not showing any cavitary lesions or any lesions suggestive of TB [place] and history of BCG vaccination Likely secondary to BCG vaccination but it still will send sputum for AFB and QuantiFERON test for TB Will also get CRP and ESR for completeness Does not need to be in isolation Awaiting pulmonary evaluation for solid nodules 4 to 5 mm in the left lower lobe Doubt any tuberculosis and awaiting definitive test Anemia Hemoglobin 11.4 MCV 101 Will check stool for Hemoccult Iron studies, vitamin B12 folate levels Will follow labs DVT prophylaxis Lovenox Disposition Telemetry Full code. Total Time Total Time Spent Total Time Spent (In Minutes): 40 monutes Discharge Plan Discharge Items Patient Disposition: Home - Self-Care Reason For Visit: SYNCOPE, RHABDOMYOLYSIS Discharge Diagnosis: Syncope likely vasovagal, rhabdomyolysis. May have latent TB Condition on Discharge: Serious Activity: Resume your previous activity Non-emergency contact: Primary Care Provider Call non-emergency contact if: you have any medication questions and your symptoms worsen Follow-up/Referrals: Bossman Ochoa DO [Primary Care Provider] - (Please make an appointment with your PCP within 7 days) Diet: Regular Addtl Attending Provider Instructions: Please take precautions to avoid falls No change in your medications Drink more fluid Will need outpatient appointment with the TB clinic-awaiting gold test for TB You can try [id number] cough suppressant as needed Pending Studies at Discharge: Yes Studies:: Gold TB test Stand-Alone Forms: My [facility], Smoking Cessation Medications and DC Order Prescriptions: New dextromethorphan-guaifenesin [Robitussin Cough-Chest Mark DM] 5-100 mg/5 mL liquid 10 ml PO Q6H PRN (Reason: cough) Qty: 500 0RF Discharge Orders: Discharge Order (Routine); Ordered 07/03/25 Ordered By: Carmine Hidalgo Admission Data Admit Date/Time: 06/30/25 22:33 Attending Provider: Carmine Hidalgo Admit Provider: Chilo Del Angel Primary Care Provider: Bossman Ochoa Other Providers: Chilo Del Angel; Chikis Adamson; Parmjit Castellano; Chikis Khanna; Bossman Krueger; Tez Ortega; Jayant Bolton; Elfego Osman; Garima Odom; Donn Hodges; George Machado; Chanel Self; Lucas Hernandez; Iris Lee; Elizabeth Foy; Elfego Man; Florinda Jansen; Celestina Gonzalez; Talon Wray; Carmine Hidalgo Other Interventions: Discharge Summary Assessment (RN) Last Done: 07/03/25 11:13
[2025-07-04 01:28] LABS: Hepatitis A Antibody IgM NON-REACTIVE (NON-REACTIVE); Hepatitis B Core Antibody IgM NON-REACTIVE (NON-REACTIVE)
[2025-07-04 13:12] LABS: Quantiferon TB1 10.000 IU/mL; Quantiferon TB2 10.000 IU/mL
== END 2025-07-03 12:41 | disposition home or self-care (01) | DRG 312 ==
LOC: ED 17:59 → SUATTDRO 22:33 → EDINP 22:33 → 2S 07-01 00:37 → 2E 07-02 07:21